=== PATIENT | female | born 1990 | race American Indian/Alaskan Native ===

== ENCOUNTER 2024-01-20 11:39 | Outpatient (REF) | payer MEDICAID, SELFPAY ==
[2024-01-20 13:20] LABS: MANUAL DIFF FLAG NO
[2024-01-20 13:38] LABS: Basophils Percent Auto 0.4 % (0-2); Eosinophils Absolute Auto 0.1 X10*3/uL (0.0-0.4); Eosinophils Percent Auto 1.1 % (0-4); Hematocrit 36.3 % (37.0-47.0); Hemoglobin 11.4 g/dl (12.0-16.0); Imm Gran Abs Auto 0.02 X10*3/uL (0.00-0.03); Imm Gran Pct Auto 0.2 % (0.0-0.4); Lymphocytes Absolute Auto 3.3 X10*3/uL (1.2-4.9); Lymphocytes Percent Auto 31.1 % (20-40); Mean Corpuscular HGB Conc 31.4 g/dl (31.0-35.0); Mean Corpuscular Hemoglobin 24.5 pg (27.0-33.0); Mean Corpuscular Volume 77.9 fL (80.0-98.0); Mean Platelet Volume 10.3 fL (9.4-12.3); Monocytes Absolute Auto 0.5 X10*3/uL (0.1-1.2); Monocytes Percent Auto 4.7 % (2-11); Neutrophils Absolute Auto 6.6 x10*3/uL (2.0-8.3); Neutrophils Percent Auto 62.5 % (45-73); Platelet Count 347 X10*3/uL (160-400); Red Blood Count 4.66 X10*6/uL (4.20-5.50); Red Cell Distribution Width 15.4 % (11.0-16.0); White Blood Count 10.5 X10*3/uL (4.8-10.8)
[2024-01-20 14:04] LABS: Estimated Average Glucose 114 mg/dL; Hemoglobin A1C 115.0058 umol/L; Hemoglobin A1c % 5.6 % (<6.0); Total Hemoglobin (HGBA1C) 3023.4869 umol/L
[2024-01-20 17:02] LABS: Alanine Aminotransferase 20 U/L (0-31); Albumin Level 4.2 g/dL (3.5-5.0); Alkaline Phosphatase 49 U/L (39-117); Anion Gap 11 (12-20); Aspartate Amino Transferase 28 U/L (5-31); Bilirubin Total 0.7 mg/dL (0.0-1.0); Blood Urea Nitrogen 14 mg/dL (9-16); Carbon Dioxide 24 mmol/L (22-29); Chloride 107 mmol/L (96-108); Cholesterol 189 mg/dL (<200); Estimated Glomerular Filt Rate > 60; Glucose Random 72 mg/dL (60-115); HDL Cholesterol 54 mg/dL (>40); LDL Cholesterol Calculated 116 mg/dL (<100); Potassium 3.8 mmol/L (3.3-5.1); Sodium 138 mmol/L (135-145); Total Protein 7.5 g/dL (6.5-8.0); Triglycerides 97 mg/dL (<150)
[2024-01-20 17:19] LABS: TSH reflex Free T4 0.92 uIU/mL (0.32-4.0); Vitamin D 25-OH Total 60.8 ng/mL (>30)
[2024-01-21 04:07] LABS: HIV AB/AG Nonreactive (Nonreactive); HIV Num 1 0.05 S/CO (0.00-0.99); ~Hepatitis C Antibody Nonreactive (Nonreactive)
== END 2024-01-20 11:40 | disposition home or self-care (01) ==
LOC: HO.HHCL 11:39
PROVIDERS: Visit Provider Internal Medicine
DX: Z00.00 Encounter for general adult medical examination without abnormal findings (principal)
CPT/HCPCS: 36415; 80053; 80061; 82306; 83036; 84443; 85025; 86803; 87389

== ENCOUNTER 2024-03-24 16:16 | Outpatient (REF) | payer MEDICAID, SELFPAY ==
[2024-03-24 18:21] LABS: Bacterial Vaginosis PCR NEGATIVE (Negative); Candida Group PCR NOT DETECTED (Not Detect); Candida glab krusei PCR NOT DETECTED (Not Detect); Trichomonas vaginalis PCR NOT DETECTED (Not Detect)
[2024-03-27 10:16] LABS: HPV 16,18/45 See PAP report
== END 2024-03-24 16:17 | disposition home or self-care (01) ==
LOC: HO.HHCLNP 16:16
PROVIDERS: Visit Provider Internal Medicine
DX: Z12.4 Encounter for screening for malignant neoplasm of cervix (principal); Z11.51 Encounter for screening for human papillomavirus (HPV)
CPT/HCPCS: 81515; 87626; 88175

== ENCOUNTER 2024-06-23 15:16 | Outpatient (REF) | payer MEDICAID, SELFPAY ==
--- OUTSIDE RECORDS SUMMARY | 2024-06-23 15:19 | XMS_ITS | Clinical Summary ---
Author Organization [employer] Address [address] [place] [address] 7[address] [place] [address] Care Team Providers Care Palaeontologist Name Role Phone Debbie Carmona MD Primary Care Provide r Allergies No known active allergies Medications * This document contains information received from the source organization and may not represent a complete record from that organization. levonorgestrel-e thinyl estradiol (Nordette) 0.15-30 MG-MCG tabletIndication s:Family planning TAKE 1 TABLET BY MOUTH EVERY MORNING 84 tablet 12/09/2023 Active amitriptyline (Elavil) 25 MG tabletIndication s:Migraine without aura and without status migrainosus, not intractable Take 1 tablet (25 mg) by mouth at bedtime. 30 tablet 1 05/15/2024 05/16/19 26 Active Active Problems Problem Noted Date Diagnosed Date Vasovagal syncope 06/23/2024 Assessment & Plan (06/23/2024 3:17 PM EDT): Hx suggestive of vasovagal syncope. Will refer to cardiology for possible holter/tilt test Encouraged hydration and salt in diet Consider compression stocking Follow up in 6 weeks Avulsion of tooth 06/23/2024 Encounter for screening for cervical cancer 03/15 Depression with anxiety 01/20/2024 Assessment & Plan (05/15/2024 10:21 AM EST): Counseling done Patient referred to [facility] Assessment & Plan (01/20/2024 1:12 PM EST): Counseling done Health care maintenance 01/20/2024 Migraine without aura and wi thout status migrainosus, not intractable 01/20/2024 Assessment & Plan (05/15/2024 10:22 AM EST): I advise to avoid migraine triggers like red wine, chocolate, cheese, strong perfumes I will go up on amitryptiline to 25mg at bed time RTC 4 weeks televisit Assessment & Plan (03/24/2024 11:14 AM EST): I advise to avoid migraine triggers like red wine, chocolate, cheese, strong perfumes I will start her on preventive medication amitriptyline 10mg at bed time C/w fioricept PRN RTC 4 weeks televisit Assessment & Plan (01/20/2024 1:13 PM EST): I advise to avoid migraine triggers like red wine, chocolate, cheese, strong perfumes I discontinue sumatriptan and started her on Fioricet PRN Encounters * This document contains information received from the source organization and may not represent a complete record from that organization. Date Type Department Care Team Description 06/23/2024 2:40 PM EDT Office Visit [facility] [address] [place] [address] Fouzia Frank NP Vasovagal syncope (Primary Dx); Tooth avulsion, sequela 06/23/2024 Telephone [facility] [address] [place] [phone] Debbie Carmona MD Nurse Triage 05/15/2024 10:00 AM EST Telemedicine [facility] [address], [place] [phone] Debbie Carmona MD Depression with anxiety (Primary Dx); Migraine without aura and without status migrainosus, not intractable 05/15/2024 Travel 05/10/2024 2:45 PM EST Office Visit [facility] [address] [place], [place] [phone] Jeanette Cardozo, IGOR Migraine without aura and without status migrainosus, not intractable (Primary Dx); Hypermetropia, bilateral 05/10/2024 Travel 05/08/2024 Travel 04/04/2024 Telephone [facility] [address] [place] [address] [phone] Debbie Carmona MD Results from Last 3 Months Immunizations Name Administration Dates Next Due Influenza, seasonal, injectable, preservative fr ee 01/20/2024 Pfizer Covid-19 Vaccine 12+ 01/20/2024 Family History Medical History Relation Name Comments Diabetes Mother Relation Name Status Comments Mother Social History Tobacco Use Types Packs/Day Years Used Date Smoking Tobacco: Never Passive Smoke Exposure: Never Smokeless Tobacco: Never Tobacco Cessation:Counseling Given: Not Answered Alcohol Use Standard Drinks/Week Comments Never 0 (1 standard drink = 0.6 oz pur e alcohol) Depression Answer Date Recorded Patient Health Questionnaire-9 Score 10 06/01/2024 Patient Health Questionnaire-9 Score 10 06/01/2024 Last PHQ-9: Questionnaire Data Not on file 0 06/01/2024 Housing Stability Answer Date Recorded What is your housing situation today? I have carolademetrice carter 01/11/[address] you li ve. Do you have problems with any of the following? None of the above 01/11/2024 Food Insecurity Answer Date Recorded Within the past 12 months, y ou worried that your food would run out before you got money to buy more: Never True 01/11/2024 Within the past 12 months,th e food you bought just didn't last and you didn't have enough money to get more: Never True Transportation Answer Date Recorded In the past 12 months, has l ack of transportation kept you from medical appts, meetings, work or from getting things needed for daily living? No 01/11/2024 Utilities Answer Date Recorded In the past 12 months, has t he electric, gas, oil or water company threatened to shut off services in your home? No 01/11/2024 Depression Answer Date Recorded Patient Health Questionnaire-2 Score 4 06/01/2024 Internet Access Answer Date Recorded Internet Access Q1 Yes 01/11/2024 Internet Access Q2 Not on file 01/11/2024 Comments No Sex and Gender Information Value Date Recorded Sex Assigned at Female 03/02/2023 2:19 PM EST Legal Sex Female 2:29 PM EST Gender Identity Female 03/02/2023 2:19 PM EST Sexual Orientation Straight 03/02/2023 2: 19 PM EST Last Filed Vital Signs Vital Sign Reading Time Taken Comments Blood Pressure 116/66 06/23/2024 2:36 PM EDT Pulse 79 06/23/2024 2:36 PM EDT Temperature 36.7 ??C (98 ??F) 06/23/2024 2:36 PM EDT Respiratory Rate 18 06/23/2024 2:36 PM EDT Oxygen Saturation 97% 06/23/2024 2:36 PM EDT Inhaled Oxygen Concentration - - Weight 62.6 kg (138 lb) 06/23/2024 2:36 PM EDT Height 167.6 cm (5' 6 ) 06/23/2024 2:36 PM EDT Body Mass Index 22.27 06/23/2024 2:36 PM EDT Plan of Treatment Upcoming Encounters Date Type Department Care Team (Late st Contact Info) Description 07/14/2024 11:00 AM EDT Telemedicine [facility] [address] [place] [phone] Debbie Carmona MD [address] [place] [address] 09/01/2024 4:00 PM EDT Office Visit [facility] [address] [place] [address] [phone] Fouzia Frank NP [address] [place] [address] Health Maintenance Due Date Last Done Comments Family Planning (PISQ) 2004 DTaP/Tdap/Td Vaccines (1 - Tdap) 2008 Hepatitis B Vaccines (1 of 3 - 19+ 3-dose series) 2008 HPV/Cotest 2019 Depression Monitoring 12/02/2024 06/01/2024 , 06/01/2024 SDOH Screening 01/10/2025 01/11/2024 Alcohol/Substance Use Screening 01/19/2025 01/20/2024 Depression Screening 06/01/2025 06/01/2024, 06/01/2024 Tobacco Screening 06/23/2025 06/23/2024 Cervical Cancer Screening 03/24/2029 Pap Smear 03/24/2029 03/24/2024 Zoster Vaccines (1 of 2) 2039 RSV Patients and Patients Aged 60 years or older (1 - 1-dose 75+ series) 2064 COVID-19 Vaccine Completed 01/20/2024 HIV Screening Completed 01/20/2024 Hepatitis C Screening Completed 01/20/2024 Influenza Vaccine Completed 01/20/2024 HIB Vaccines Aged Out No longer eligi ble based on patient's age to complete this topic HPV Vaccines Aged Out No longer eligi ble based on patient's age to complete this topic Hepatitis A Vaccines Aged Out No long er eligible based on patient's age to complete this topic IPV Vaccines Aged Out No longer eligi ble based on patient's age to complete this topic Meningococcal Vaccine Aged Out No fiorella sravanthi eligible based on patient's age to complete this topic Pneumococcal Vaccine: Pediatrics (0 to 5 Years) and At-Risk Patients (6 to 49) Years) Aged Out No longer eligible b ased on patient's age to complete this topic RSV under 20 months Aged Out No longe r eligible based on patient's age to complete this topic Rotavirus Vaccines Aged Out No longer eligible based on patient's age to complete this topic Procedures Procedure Name Priority Date/Time Associated Diagnosis Comments PAP SMEAR Routine 03/24/2024 12:00 AM EST Encounter for screening for cervical cancer HEPATITIS C AB W/REFL TO HCV RNA, QN, PCR Routine 01/20/2024 11:50 AM EST Health care maintenance HIV 1/2 ANTIGEN/ANTIBODY, FOURTH GENERATION W/RFL Routine 01/20/2024 11:50 AM EST Health care maintenance from Last 3 Months or Most Recently Relevant to Health Maintenance Results * Pap Smear (03/24/2024 12:00 AM EST) Swab 03/24/2024 03/27/2024 9:2 0 AM EST Narrative [facility] - 03/31/2024 12:54 PM EST ----- ------- Name: Margot Hartman ? Age/Sex: 34/F ? : 1990 Unit#: [id number] ?? Attend Dr: Debbie Carmona MD ?Re03/24/24 ?Status: DEP REF ? Location: [facility] ? Disch: ? ----- ------- SPEC : [id number] ?RECD: 03/27/24 ? STATUS: ??SOUT ? REQ NUM: [id number] ? TARA: 03/24/24- ? SUBM DR: Debbie Carmona MD ? ENTERED: ??03/27/24 ?SP TYPE: Pap Smr ?OTHR : ? ORDERED: ??Pap Smear ? Interpretation ?? Satisfactory for evaluation. ?? Negative for intraepithelial lesion or malignancy. ?? No endocervical cells seen. ? HPV High Risk: ??Negative ? HPV Genotyping 16: ??Negative ?? HPV Genotyping 18: ??Negative ?Clinical Information LMP: 02/25/2024 Previous PAP test: Unknown date, normal as per patient ? Material Received ?? ThinPrep-Cervical ----- ------- Signed (signature on file) VIC [place] (ASCP) 03/31/24 1254 ? ----- ------- ? END OF REPORT ? us Debbie Campuzano MD LAB CYTOLOGY ORDERABL ES Final Result [facility] [address] [place] [phone] * Hepatitis C Antibody with Reflex to HCV, RNA, Quantitative, Real-Time PCR (01/20/2024 11:50 AM EST) Hepatitis C Antibody Nonreactive Nonreactive [facility] Comment:Antibodies to HCV no t detected; does not exclude early acuteHCV infection. Blood Venous blood specimen / Unknown 01/20/2024 11:50 AM EST 01/20/2024 1:14 PM EST us Debbie Campuzano MD LAB BLOOD ORDERABLES Final Result Performing Organization Address [facility] de Phone Number [facility] [address] [place] [phone] * HIV-1/2 Antigen and Antibodies, Fourth Generation, with Reflexes (01/20/2024 11:50 AM EST) HIV AB/AG Nonreactive Nonreactive [facility] Comment:HIV-1 p24 Ag and/or HIV-1/HIV-2 Ab not detected.A test result that is nonreactive does not exclude thepossibility of exposure to or infection with HIV-1 and/orHIV-2. Nonreactive results in this assay for individualswith prior exposure to HIV-1 and/or HIV-2 may be due toantigen and antibody levels that are below the limit ofdetection of this assay.The [employer] HIV Ag/Ab Combo assay result andsupplemental assay results should be interpreted inconjunction with the patient's clinical presentation,history and other laboratory results. If the results areinconsistent with clinical evidence, additional testing issuggested to confirm the result. Blood Venous blood specimen / Unknown 01/20/2024 11:50 AM EST 01/20/2024 1:14 PM EST us Debbie Campuzano MD LAB BLOOD ORDERABLES Final Result Performing Organization Address [facility] de Phone Number [facility] [address] [place] [phone] from Last 3 Months or Most Recently Relevant to Health Maintenance Insurance [facility] [employer] F[employer] Care Teams Palaeontologist Relationship Specialty Start Date End Date Debbie Carmona MD [address] [place] [phone] PCP - General Internal Medicine 01/20/24
--- OUTSIDE RECORDS SUMMARY | 2024-06-23 15:19 | XMS_ITS | Encounter Summary ---
Author Organization [employer] Address [address] [place] [address] [address] [place] [address] Care Team Providers Care Inside Sales Professional Name Role Phone Debbie Carmona MD Primary Care Provide r Reason for Referral * Consultation (Routine) - Authorized Specialty Diagnoses / Procedures Referred By Contac t Referred To Contact Dental Pot Liner / Dentistry Diagnoses Vasovagal syncope Tooth avulsion, sequela Fouzia Frank NP [address] [place] [address] Phone: tel: fax: Referral ID Status Reason Start Date Expiration Date Visits Requested Visits Authorized [id number] Authorized Consult and Treat 06/23/2024 06/23/2025 1 1 * Consultation (Routine) - Pending Review Specialty Diagnoses / Procedures Referred By Conthudson t Referred To Contact Cardiology Diagnoses Vasovagal syncope Fouzia Frank NP [address] [place] [address] Phone: tel: fax: Referral ID Status Reason Start Date Expiration Date Visits Requested Visits Authorized [id number] Pending Review Specialty Services Required 06/23/2024 06/23/2025 1 1 Encounter Details Date Type Department Care Team (Late st Contact Info) Description 06/23/2024 2:40 PM EDT Office Visit [facility] [address] [place] [address] Fouzia Frank, ASA [address] [place] [address] Vasovagal syncope (Primary Dx); Tooth avulsion, sequela Social History Tobacco Use Types Packs/Day Years [...] is your housing situation today? I have carola carter 01/11/[address] you [...] Orientation Straight 03/02/2023 2: 19 PM EST documented as of this encounter Last Filed Vital Signs Vital Sign Reading [...] Mass Index 22.27 06/23/2024 2:36 PM EDT documented in this encounter Progress Notes * Fouzia Frank, CLINICAL CARE COORDINATOR - 06/23/2024 2:40 PM EDT Subjective: Margot Hartman is a 34 y.o. female who presents to the office for a sick visit. HPI Woke up , when stood up felt dizzy, lightheaded Sat down to urinate, and felt chills, very strong and then awoke on the floor, with pants low, no further urine Has been happening life long, always preceeded by lightheadedness, micturation or defecation and then faints Last time 6 months ago. Same thing occurred. Always after urinating or defecation but then it occurs. Has pain in the face where she fell and had a nose bleed Feels nausea and like going to vomit, has urinated unconscious before, no known hx of seizure This started at age 11 Hx of anemia (mild) Patient Active Problem List Diagnosis Depression with anxiety Health care maintenance Migraine without aura and without status migrainosus, not intractable Encounter for screening for cervical cancer Vasovagal syncope Avulsion of tooth Review of Systems Constitutional: Negative for activity change and appetite change. Respiratory: Negative for apnea and chest tightness. Cardiovascular: Negative for chest pain, palpitations and leg swelling. Genitourinary: Negative for difficulty urinating. Neurological: Positive for syncope and headaches. No Known Allergies Objective: Visit Vitals BP 116/66 (BP Location: Left arm, Patient Position: Sitting, BP Cuff Size: Adult) Pulse 79 Temp 98 ??F (36.7 ??C) (Temporal) Resp 18 Ht 5' 6 (1.676 m) Wt 138 lb (62.6 kg) LMP 05/23/2024 (Approximate) SpO2 97% BMI 22.27 kg/m?? OB Status Having periods Smoking Status Never BSA 1.71 m?? Physical Exam Vitals reviewed. HENT: Head: Normocephalic and atraumatic. Nose: Nose normal. Eyes: Conjunctiva/sclera: Conjunctivae normal. Cardiovascular: Rate and Rhythm: Normal rate and regular rhythm. Heart sounds: Normal heart sounds. Pulmonary: Effort: Pulmonary effort is normal. Breath sounds: Normal breath sounds. Musculoskeletal: Cervical back: Normal range of motion and neck supple. Neurological: General: No focal deficit present. Mental Status: She is alert. Assessment/Plan: Problem List Items Addressed This Visit Vasovagal syncope - Primary Current Assessment & Plan Hx suggestive of vasovagal syncope. Will refer to cardiology for possible holter/tilt test Encouraged hydration and salt in diet Consider compression stocking Follow up in 6 weeks Relevant Orders Referral to Cardiology CBC auto differential Comprehensive Metabolic Panel TSH W/Reflex to FT4 Referral to [facility] Dental Adult Avulsion of tooth Relevant Orders Referral to [facility] Dental Adult Current Outpatient Medications Medication Sig Dispense Refill amitriptyline (Elavil) 25 MG tablet Take 1 tablet (25 mg) by mouth at bedtime. 30 tablet 1 levonorgestrel-ethinyl estradiol (Nordette) 0.15-30 MG-MCG tablet TAKE 1 TABLET BY MOUTH EVERY MORNING 84 tablet 0 No current facility-administered medications for this visit. Visit Conducted in: Botswanan Translation by: Provided by [facility] staff member MARIELY park , documented in this encounter Miscellaneous Notes * Assessment & Plan Note - Fouzia Frank NP - 06/23/2024 3:16 PM EDTAssociated Problem(s): Vasovagal syncope Hx suggestive of vasovagal syncope. Will refer to cardiology for possible holter/tilt test Encouraged hydration and salt in diet Consider compression stocking Follow up in 6 weeks documented in this encounter Plan of Treatment Upcoming Encounters Date Type Department Care Team (Late st Contact Info) Description 07/14/2024 11:00 AM EDT Telemedicine [facility] [address] [place] [address] [phone] Debbie Carmona MD [address] [place], [place] [phone] 09/01/2024 4:00 PM EDT Office Visit [facility] [address] [place] [address] [phone] Fouzia Frank NP [address] [place], [place] [phone] Scheduled Orders Name Type Priority Associated Diagnoses Orde r Schedule CBC auto differential Lab Routine Vasovagal syncope Expected: 06/23/2024 (Approximate), Expires: 06/23/2025 Comprehensive Metabolic Panel Lab Routine Vasovagal syncope Expected: 06/23/2024 (Approximate), Expires: 06/23/2025 TSH W/Reflex to FT4 Lab Routine Vasovagal syncope Expected: 06/23/2024 (Approximate), Expires: 06/23/2025 Scheduled Referrals Name Type Priority Associated Diagnoses Order Schedule Referral to Cardiology Outpatient Referral Routine Vasovagal syncope Expected: 06/23/2024 (Approximate), Expires: 06/23/[address] [facility] Dental Adult Outpatient Referral Routine Vasovagal syncope Tooth avulsion, sequela Expected: 06/23/2024 (Approximate), Expires: 06/23/2025 documented as of this encounter Visit Diagnoses Diagnosis Vasovagal syncope- Primary Syncope and collapse Tooth avulsion, sequela documented in this encounter Additional Health Concerns Assessment Noted Time PHQ-9 Depression Total Score: 10 025 9:58 AM EDT documented as of this encounter Care Teams Inside Sales Professional Relationship Specialty Start Date End Date Debbie Carmona MD [address] [place] [address] [phone] PCP - General Internal Medicine 01/20/24 documented as of this encounter
--- OUTSIDE RECORDS SUMMARY | 2024-06-23 15:19 | XMS_ITS | Encounter Summary ---
Author Organization [employer] Address [address] [place] [address] [address] [place] [address] Care Team Providers Care Corporate Executive Name Role Phone Debbie Carmona MD Primary Care Provide r Reason for Visit * Reason Onset Date Comments Nurse Triage 06/23/2024 Encounter Details Date Type Department Care Team ([facility] st Contact Info) Description 06/23/2024 Telephone [facility] [address] [place] [phone] Debbie Carmona MD [address] [place] [address] Nurse Triage Social History Tobacco Use Types Packs/Day Years Used Date Smoking Tobacco: Never Passive Smoke Exposure: Never Smokeless Tobacco: Never Alcohol Use Standard Drinks/Week Comments Never 0 [...] PM EST documented as of this encounter Miscellaneous Notes * Telephone Encounter - Mary Gayle RN - 06/23/2024 9:57 AM EDT No vehicle return associate needed as this designer writer speaks Amharic. Call returned to Margot Hartman to triage below. Reports having a fainting episode this morning and hit face. Per pt had loss of consciousness x30 mins. Per pt was on toilet having BM and fainted hitting face on wall. Pt denies any open areas of skin. Front teeth are painful as well. Pt denies any dizziness now or vomiting. Pt advised of disp osition, agrees to seek [facility] ED now. Sent to team for [facility] ED status check PRN. Protocol Used: Head Injury (Adult) Protocol-Based Disposition: Go to ED/C Now (or to Office with PCP Approval) Positive Triage Questions: * Acute Neuro Symptom and now fine (Definition: Difficult to awaken OR confused thinking and talking OR slurred speech OR weakness of arms or legs OR unsteady walking.) * Knocked out (unconscious) < 1 minute and now fine * Severe headache * All higher-acuity triage questions were negative * Telephone Encounter - Neelam Yu - 06/23/2024 9:47 AM EDT Symptom: Dizziness, fainted ,fell this morning hit her face and informs believes was unconscious for about 30 min Outcome: Schedule an urgent appointment (within 4 hours) or talk to a nurse or provider soon Reason: Started within the past 3 days The caller accepted this outcome. documented in this encounter Plan of Treatment Upcoming Encounters Date Type Department Care Team (Late st Contact Info) Description 07/14/2024 11:00 AM EDT Telemedicine [facility] [address] [place] [phone] Debbie Carmona MD [address] [place] [address] 09/01/2024 4:00 PM EDT Office Visit [facility] [address] [place] [phone] Fouzia Frank NP [address] [place] [address] documented as of this encounter Visit Diagnoses Not on filedocumented in this encounter Additional Health Concerns Assessment Noted Time PHQ-9 Depression Total Score: 10 025 9:58 AM EDT documented as of this encounter Care Teams Corporate Executive Relationship Specialty Start Date End Date Debbie Carmona MD [address] [place] [address] [phone] PCP - General Internal Medicine 01/20/24 documented as of this encounter
[2024-06-23 16:02] LABS: MANUAL DIFF FLAG NO
[2024-06-23 16:14] LABS: Basophils Percent Auto 0.3 % (0-2); Eosinophils Absolute Auto 0.1 X10*3/uL (0.0-0.4); Eosinophils Percent Auto 0.5 % (0-4); Hematocrit 33.5 % (37.0-47.0); Hemoglobin 10.6 g/dl (12.0-16.0); Imm Gran Abs Auto 0.03 X10*3/uL (0.00-0.03); Imm Gran Pct Auto 0.3 % (0.0-0.4); Lymphocytes Absolute Auto 2.9 X10*3/uL (1.2-4.9); Lymphocytes Percent Auto 26.9 % (20-40); Mean Corpuscular HGB Conc 31.6 g/dl (31.0-35.0); Mean Platelet Volume 10.5 fL (9.4-12.3); Monocytes Absolute Auto 0.7 X10*3/uL (0.1-1.2); Monocytes Percent Auto 6.1 % (2-11); Neutrophils Absolute Auto 7.1 x10*3/uL (2.0-8.3); Neutrophils Percent Auto 65.9 % (45-73); Platelet Count 305 X10*3/uL (160-400); Red Blood Count 4.24 X10*6/uL (4.20-5.50); Red Cell Distribution Width 14.7 % (11.0-16.0); White Blood Count 10.8 X10*3/uL (4.8-10.8)
[2024-06-23 16:32] LABS: Alanine Aminotransferase 15 U/L (0-31); Albumin Level 4.5 g/dL (3.5-5.0); Alkaline Phosphatase 61 U/L (39-117); Anion Gap 8 (12-20); Aspartate Amino Transferase 25 U/L (5-31); Bilirubin Total 0.6 mg/dL (0.0-1.0); Blood Urea Nitrogen 14 mg/dL (9-16); Calcium 9.5 mg/dL (8.4-10.2); Carbon Dioxide 28 mmol/L (22-29); Chloride 106 mmol/L (96-108); Estimated Glomerular Filt Rate > 60; Glucose Random 88 mg/dL (60-115); Sodium 138 mmol/L (135-145); Total Protein 7.4 g/dL (6.5-8.0)
[2024-06-23 16:50] LABS: TSH reflex Free T4 0.49 uIU/mL (0.32-4.0)
== END 2024-06-23 15:17 | disposition home or self-care (01) ==
LOC: HO.HHCL 15:16
PROVIDERS: Visit Provider Nurse Practitioner Family
DX: R55 Syncope and collapse (principal)
CPT/HCPCS: 36415; 80053; 84443; 85025

== ENCOUNTER 2024-08-15 15:15 | Emergency (ER) | payer MEDICAID, SELFPAY ==
[2024-08-15] VITALS (9 sets, daily range): BP systolic 85–107; BP diastolic 50–74; PULSE 85–103; RESP 14–18; TEMP 36.6–36.7; O2SAT 99–100; BMI 24.1
--- NOTE | ~2024-08-15 | CT_ITS ---
CLINICAL HISTORY: possible seizure CT head without contrast Comparison: None Findings: No intra-axial mass, midline shift, hydrocephalus, or acute hemorrhage. No significant atrophy-like change or white matter disease. There is no sinus or mastoid fluid. The orbits are unremarkable. No skull fracture. IMPRESSION: 1. No acute intracranial findings. This document has been electronically signed by: Dajuan Doyle MD on 08/15/2024 19:17:42
--- NOTE | 2024-08-15 15:24 | ECG_ITS ---
Test Reason : syncope Blood Pressure : */* mmHG Vent. Rate : 93 BPM Atrial Rate : 93 BPM P-R Int : 118 ms QRS Dur : 72 ms QT Int : 344 ms P-R-T Axes : 64 55 70 degrees QTcB Int : 427 ms Normal sinus rhythm with sinus arrhythmia Normal ECG No previous ECGs available Referred By: Generic ED Physician Electronically Signed By: LAURA MERCADO
[2024-08-15 16:46] LABS: MANUAL DIFF FLAG NO
[2024-08-15 16:48] LABS: Basophils Percent Auto 0.3 % (0-2); Eosinophils Absolute Auto 0.1 X10*3/uL (0.0-0.4); Eosinophils Percent Auto 0.9 % (0-4); Hematocrit 34.7 % (37.0-47.0); Hemoglobin 10.8 g/dl (12.0-16.0); Imm Gran Abs Auto 0.06 X10*3/uL (0.00-0.03); Imm Gran Pct Auto 0.4 % (0.0-0.4); Lymphocytes Absolute Auto 2.5 X10*3/uL (1.2-4.9); Lymphocytes Percent Auto 16.9 % (20-40); Mean Corpuscular HGB Conc 31.1 g/dl (31.0-35.0); Mean Corpuscular Hemoglobin 24.5 pg (27.0-33.0); Mean Corpuscular Volume 78.9 fL (80.0-98.0); Mean Platelet Volume 10.4 fL (9.4-12.3); Monocytes Percent Auto 6.5 % (2-11); Neutrophils Absolute Auto 11.2 x10*3/uL (2.0-8.3); Platelet Count 296 X10*3/uL (160-400); Red Cell Distribution Width 14.7 % (11.0-16.0); White Blood Count 14.9 X10*3/uL (4.8-10.8)
[2024-08-15 16:53] LABS: Appearance Urine Clear; Color Urine Yellow; Glucose Urine UA Negative (Negative); Leukocyte Esterase Urine Trace (Negative); Nitrite Urine Negative (Negative); PH 5.5 (5.0-9.0); UMIC TRIGGER UACC YES; Urine Blood Large (3+) (Negative); Urine Ketones Negative (Negative); Urine Protein Trace mg/dL (Neg-Trace)
[2024-08-15 16:55] LABS: UPreg QC Valid YES; Urine Pregnancy NEGATIVE (NEGATIVE)
[2024-08-15 16:56] LABS: Bacteria Urine 2+ (None Seen); Hyaline Casts Urine 0-2 /LPF (0-2); RBC Urine >20 /HPF (0-2); UACC Culture Trigger YES
--- NOTE | 2024-08-15 17:00 | ED_ITS ---
HPI - General Adult General Chief complaint: Syncope Stated complaint: FALL WITH HEADSTRIKE Time Seen by Provider: 08/15/24 17:00 History of Present Illness ED Provider: Aryan PICKETT narrative: The patient is a 34-year-old female who was brought to the hospital by ambulance after having an episode of collapse while crossing a street. She says that she passed out. She says that 1st she felt dizzy then passed out. She bruised her lip when she fell. She believes she was unconscious. Bystanders called and ambulance and she was brought to the hospital. The patient says that she has been having similar problems since the age of 11. She says that these episodes of collapse or associated with her menses. She says that she usually has an episode of dizziness, syncope, and collapse 2 or 3 times a year associated with her menses. She has passed out in her lifetime more than 10 times. Her last episode before today was 2 or 3 months ago. At that time she passed out and chipped her front teeth. She says that she was also incontinent of urine today and has sometimes been incontinent of urine in the past. She says that he has never been evaluated for possible seizures. She is on no medications. She is not on control pills. She says that her episodes of dizziness and passing out associated with her menses was worse before she had her son 16 years ago. She says that her episodes are less frequent since she gave to her son but they have persisted nevertheless. She estimates that she has passed out more than 10 times in her lifetime. At the moment she is complaining of pain in her lower lip. She also has some pain in the left base of her neck. She has a headache. No numbness, tingling, weakness, burning in her extremities. She says that she has never had more than 1 such episode during any particular menstrual cycle. She says that on this occasion she just finished her menses. She says that she usually has one of these episodes just before or just after her menses. Related Data Allergies Allergy/AdvReac Type Severity Reaction Status Date / Time No Known Allergies Allergy Verified 08/15/24 16:02 Review of Systems 2 Review of Systems: Yes all other systems are reviewed and are negative Physical Exam ED Vital Signs: Vital Signs - 24 hr 08/15/24 15:59 08/15/24 16:40 08/15/24 16:40 Temperature 98 F Pulse Rate 96 98 102 H Respiratory Rate 14 Blood Pressure 89/58 L 101/63 96/68 Pulse Oximetry 100 Oxygen Delivery Method Room Air 08/15/24 16:41 08/15/24 17:20 08/15/24 17:20 Temperature Pulse Rate 102 H 103 H Respiratory Rate 18 Blood Pressure 105/66 107/71 Pulse Oximetry 100 100 Oxygen Delivery Method Room Air Room Air 08/15/24 18:10 08/15/24 18:18 08/15/24 19:30 Temperature 98.1 F Pulse Rate 87 85 Respiratory Rate 18 18 Blood Pressure 85/50 L 92/50 L 93/66 Pulse Oximetry 100 100 Oxygen Delivery Method Room Air Room Air 08/15/24 20:17 Temperature 98.1 F Pulse Rate 85 Respiratory Rate 18 Blood Pressure 93/66 Pulse Oximetry 100 Oxygen Delivery Method Room Air BMI result Body Mass Index 24.1 Const Other: The patient is a slim, healthy looking 34-year-old who was awake and alert. She does not seem in acute distress. She has a mild swelling to the lower lip. Orientation/consciousness: patient oriented x3 HENMT Other: There is some mild swelling to the lower lip. She has some slight cracking of the enamel of the lower portions of the 2 central upper incisors. She says these cracks are from a previous fall 2-3 months ago. No raccoon eyes. No hammer sign. The posterior pharynx is normal. Mucous membranes moist. Eyes Conjunctivae: conjunctivae normal Pupils: Equal, round and reactive pupils present EOM: EOMs intact bilaterally Neck Other: There is some tenderness to the left paraspinous muscles at the base of the neck. She is moving her neck easily without apparent discomfort. I think her C-spine is clinically clear. Neck: Yes no meningeal signs Resp Effort & Inspection: normal respiratory effort Auscultation: clear to auscultation bilaterally Cardio Rate: regular rate Rhythm: regular rhythm Heart sounds: S1 normal heart sound present and S2 normal heart sound present GI Other: The abdomen is soft and nontender Skin General skin exam: no rashes or lesions noted Neuro General: patient oriented x3, tone normal, moves all extremities, no meningeal signs, no focal motor deficits and CN's II-XI intact bilaterally Cranial nerves: Yes Equal, round and reactive pupils present Extrem Other: No peripheral edema, no calf swelling or tenderness Medications Administered Discontinued Medications Generic Name Dose Route Start Last Admin Trade Name Augustine PRN Reason Stop Dose Admin Sodium Chloride 1,000 mls @ 999 mls/hr 08/15/24 18:30 08/15/24 20:19 Ns IV 08/15/24 19:30 Infused .Q1H1M MIKE Infusion Medical Decision Making Medical Decision Making [facility] Narrative: The patient is a 34-year-old female who was brought to the Emergency room by ambulance after having some kind of a syncopal type episode while crossing the street on her way to work. The patient describes feeling dizzy and then passing out. She describes injuring her face, primarily her lower lip. She feels that her lower lip is bruised. She also describes being incontinent of urine. This seems potentially suggestive of a seizure disorder however the patient also describes having multiple similar episodes since the age of 11. the patient says that since the age of 11 she has had similar episodes associated with her menses. She says that she will often get episodes of dizziness and collapse that occur either at the beginning of her menses, or just after her menses ended. She says that she has episodes of passing out at least 2 or 3 times a year and has done so for many years. She says that she has never had any kind of evaluation for a seizure any other workup of these episodes. On exam she seems to have some bruising of her lower lip. Additionally she has some minor chipping to the lower front upper teeth ( teeth 8 and 9). she says that this chipping occurred during a similar episode of collapse 2 or 3 months ago. She says that at that point she went to her PCP's office but was not referred for any other evaluation. In the emergency room today the patient has a negative workup including a negative head CT. EKGs unremarkable. She seems to run a low blood pressure but I suspect this is her baseline blood pressure. She was kept in the emergency room for several hours and observed. She was given a L of IV fluids. Ultimately given her negative workup I felt she was appropriate for discharge. She will be referred for outpatient neurology and cardiology follow up to discuss these episodes of syncope and collapse. Since seizures are still in the differential she is advised that she must not drive. Lab Data 08/15/24 16:20 08/15/24 16:20 Labs: Lab Results 08/15/24 08/15/24 Range/Units 16:20 16:38 WBC 14.9 H (4.8-10.8) X10*3/uL RBC 4.40 (4.20-5.50) X10*6/uL Hgb 10.8 L (12.0-16.0) g/dl Hct 34.7 L (37.0-47.0) % MCV 78.9 L (80.0-98.0) fL MCH 24.5 L (27.0-33.0) pg MCHC 31.1 (31.0-35.0) g/dl RDW 14.7 (11.0-16.0) % Plt Count 296 (160-400) X10*3/uL MPV 10.4 (9.4-12.3) fL Immature Gran % (Auto) 0.4 (0.0-0.4) % Neut % (Auto) 75.0 H (45-73) % Lymph % (Auto) 16.9 L (20-40) % [place] % (Auto) 6.5 (2-11) % Eos % (Auto) 0.9 (0-4) % Baso % (Auto) 0.3 (0-2) % Lymph # (Auto) 2.5 (1.2-4.9) X10*3/uL [place] # (Auto) 1.0 (0.1-1.2) X10*3/uL Eos # (Auto) 0.1 (0.0-0.4) X10*3/uL Baso # (Auto) 0.0 (0.0-0.2) X10*3/uL Abs Immat Gran (auto) 0.06 H (0.00-0.03) X10*3/uL Absolute Neuts (auto) 11.2 H (2.0-8.3) x10*3/uL Absolute Nucleated RBC 0.000 (0.0-0.012) X10*3/uL Nucleated RBC % (auto) 0.0 (0.0-0.2) /100WBC Sodium 138 (135-145) mmol/L Potassium 3.7 (3.3-5.1) mmol/L Chloride 108 (96-108) mmol/L Carbon Dioxide 23 (22-29) mmol/L Anion Gap 11 L (12-20) BUN 15 (9-16) mg/dL Creatinine 0.77 (0.5-1.4) mg/dL Estim Creat Clear Calc 88.0 Estimated GFR > 60 Random Glucose 116 H (60-115) mg/dL Calcium 9.1 (8.4-10.2) mg/dL Total Bilirubin 0.4 (0.0-1.0) mg/dL AST 23 (5-31) U/L ALT 18 (0-31) U/L Alkaline Phosphatase 66 (39-117) U/L Total Protein 7.1 (6.5-8.0) g/dL Albumin 4.2 (3.5-5.0) g/dL Urine Color Yellow Urine Appearance Clear Urine pH 5.5 (5.0-9.0) Ur Specific Willis 1.020 (1.005-1.025) Urine Protein Trace (Neg-Trace) mg/dL Urine Glucose (UA) Negative (Negative) mg/dL Urine Ketones Negative (Negative) mg/dL Urine Blood Large (3+) H (Negative) Urine Nitrite Negative (Negative) Ur Leukocyte Esterase Trace H (Negative) Urine RBC >20 H (0-2) /HPF Urine WBC 6-10 H (0-5) /HPF Ur Squamous Epith Cells 6-10 (0-2) /HPF Urine Bacteria 2+ (None Seen) Hyaline Casts 0-2 (0-2) /LPF Urine Test NEGATIVE (NEGATIVE) Discharge Plan Discharge Clinical Impression: Syncope and collapse, Contusion of lip Patient Disposition: Home, Self-Care Additional Instructions: I think that you should try to have additional evaluation to investigate why you keep having these episodes of collapse. You has been provided with the contact information for the cardiology office and the neurology office. Please contact these offices tomorrow to make follow up appointments. Since it is possible these episodes could represent unusual seizures I feel that I need to tell you that you should not drive a car until you has been cleared by Neurology. In the meantime make sure that you eat well and take plenty of fluids. Follow up with your regular doctor as well as the neurology office and the cardiology office. Return to the emergency room if significantly worse. Referrals: [facility] [Provider Group] ( recurrent syncope versus seizure) [facility] [Provider Group] ( recurrent syncope versus recurrent seizure) Debbie Carmona MD [Primary Care Provider] - ( syncope versus seizure) Stand Alone Forms: Work/School Release Interventions: ED Discharge Assessment Last Done: 08/15/24 20:17 Discharge Date/Time: 08/15/24 20:19 Print Language: Finnish
[2024-08-15 17:07] LABS: Alanine Aminotransferase 18 U/L (0-31); Albumin Level 4.2 g/dL (3.5-5.0); Alkaline Phosphatase 66 U/L (39-117); Anion Gap 11 (12-20); Aspartate Amino Transferase 23 U/L (5-31); Bilirubin Total 0.4 mg/dL (0.0-1.0); Blood Urea Nitrogen 15 mg/dL (9-16); Calcium 9.1 mg/dL (8.4-10.2); Carbon Dioxide 23 mmol/L (22-29); Chloride 108 mmol/L (96-108); Estimated Glomerular Filt Rate > 60; Glucose Random 116 mg/dL (60-115); Potassium 3.7 mmol/L (3.3-5.1); Sodium 138 mmol/L (135-145); Total Protein 7.1 g/dL (6.5-8.0)
--- OUTSIDE RECORDS SUMMARY | 2024-08-15 17:10 | XMS_ITS | Encounter Summary ---
Author Organization [employer] Address [address] [place] [address] Care Team Providers Care Court Attendant Name Role Phone Debbie Carmona MD Primary Care Provide r Encounter Details Date Type Department Care Team ([facility] st Contact Info) Description 07/12/2024 Orders Only [facility] [address] [place] [address] Radha Hobson Social History Tobacco Use Types Packs/Day Years [...] PM EST documented as of this encounter Functional Status * Over the last 2 weeks, how often have you been bothered by any of the following problems? Question Answer Date of Assessment Author Feeling nervous, anxious, or on edge 2 04/2024 11:01 AM EDT Dayana Bazan MA Not being able to stop or co ntrol worrying 2 07/14/2024 11:01 AM EDT Dayana Bazan M A Worrying too much about diff erent things 3 07/14/2024 11:01 AM EDT Dayana Bazan M A Trouble relaxing 3 07/14/2024 11:01 AM EDT Dayana Bazan MA Being so restless that it is hard to sit still 2 07/14/2024 11:01 AM EDT Dayana Bazan M A Becoming easily annoyed or irritable 2 04/2024 11:01 AM EDT Dayana Bazan MA Feeling afraid as if somethi ng awful might happen 0 07/14/2024 11:01 AM EDT Dayana Bazan M A ALVARO-7 Total Score 14 07/14/2024 11:01 AM EDT Dayana Bazan MA documented as of this encounter Plan of Treatment Upcoming Encounters Date Type Department Care Team (Late st Contact Info) Description 08/25/2024 2:30 PM EDT Office Visit [facility] ADULT DENTAL [address] [place] [address] Bernice Katz DDS [address] [place] [address] 09/01/2024 4:00 PM EDT Office Visit [facility] MEDICINE [address] [place] [address] Fouzia Frank, ASA [address] [place] [address] 09/08/2024 3:00 PM EDT Office Visit [facility] AD[facility] [address] [place] [address] Bright-Cherry, Bernice, DDS [address] [place], [place] [id number] documented as of this encounter Procedures Procedure Name Priority Date/Time Associated Diagnosis Comments URINALYSIS, COMPLETE, WITH REFLEX TO CULTURE Routine 08/15/2024 4:38 PM EDT HCG, QL, URINE Routine 08/15/2024 4:38 PM EDT HPV MRNA E6/E7 REFLEX TO HPV 16, 18/45 Routine 03/24/2024 12:00 AM EST documented in this encounter Results * (ABNORMAL) Urinalysis, Complete, with Reflex to Culture (08/15/2024 4:38 PM EDT) Color Urine Yellow [facility] Appearance Urine Clear [facility] PH 5.5 5.0 - 9.0 [facility] Glucose Urine UA Negative Negative mg/dL [facility] Urine Blood Large (3+)(A) Negative [facility] Specific [place] - Urine 1.020 1.005 - 1.025 [facility] Urine Protein Trace Neg-Trace mg/dL [facility] Urine Ketones Negative Negative mg/dL [facility] Nitrite Urine Negative Negative [facility] Leukocyte Esterase Urine Trace(A) Negative [facility] RBC Urine >20(A) 0 - 2 /HPF [facility] Urine WBC 6-10(A) 0 - 5 /HPF [facility] Urine Squamous Epithelial Cell 6-10 0 - 2 /HPF [facility] Urine Bacteria 2+ None Seen [facility] Hyaline Casts, Urine 0-2 0 - 2 /LPF [facility] 08/15/2024 4:38 PM EDT 08/15/2024 4:44 PM EDT Narrative [facility] - 08/15/2024 4:56 PM EDT [id number], Clean Catch us Generic External Data Provider LAB URINE ORDERAB LES Final Result Performing Organization Address [facility] Co de Phone Number [facility] [address] [place] [address] [phone] * HCG, Qualitative, Urine (08/15/2024 4:38 PM EDT) Urine NEGATIVE NEGATIVE [facility] Comment:This test was develo ped to detect early . Falsenegative results may occur after the 5th - 7th week ofpregnancy when using this test method. If clinicallyindicated, consider a serum hCG. 08/15/2024 4:38 PM EDT 08/15/2024 4:44 PM EDT us Generic External Data Provider LAB URINE ORDERAB LES Final Result Performing Organization Address [facility] Co de Phone Number [facility] [address] [place] [address] [phone] * HPV mRNA E6/E7 w/Reflex to HPV Genotypes 16, 18/45 (03/24/2024 12:00 AM EST) us Historical Provider LAB CYTOLOGY ORDERABLES F inal Result documented in this encounter Visit Diagnoses Not on filedocumented in this encounter Additional Health Concerns Assessment Noted Time PHQ-9 Depression Total Score: 10 025 9:58 AM EDT documented as of this encounter Care Teams Court Attendant Relationship Specialty Start Date End Date Debbie Carmona MD [address] [place] [phone] PCP - General Internal Medicine 01/20/24 documented as of this encounter
[2024-08-15] MEDS: 0.9 % Sodium Chloride 1,000 ML 999 ML IV (18:25)
== END 2024-08-15 20:19 | disposition home or self-care (01) ==
PROVIDERS: Emergency Provider Emergency Medicine; PCP Internal Medicine
DX: R55 Syncope and collapse (principal); S00.531A Contusion of lip, initial encounter; W18.39XA Other fall on same level, initial encounter; R42 Dizziness and giddiness; R51.9 Headache, unspecified; Z91.81 History of falling; Y93.89 Activity, other specified; Y92.414 Local residential or business street as the place of occurrence of the external cause; Y99.9 Unspecified external cause status
CPT/HCPCS: 36415; 70450; 80053; 81001; 81025; 85025; 87086; 93005; 96360; 96361; 99284; 99285

== ENCOUNTER → 2024-08-15 15:24 | Outpatient (BNV) | payer MEDICAID, SELFPAY | PROVIDERS: Emergency Provider Emergency Medicine; PCP Internal Medicine; Visit Provider Internal Medicine | DX: R55 Syncope and collapse (principal) | CPT/HCPCS: 93010 ==

== ENCOUNTER → 2024-08-15 17:27 | Outpatient (BNV) | payer MEDICAID, SELFPAY | PROVIDERS: Emergency Provider Emergency Medicine; PCP Internal Medicine; Visit Provider Radiology Vascular & Interventional Radiology | DX: R55 Syncope and collapse (principal) | CPT/HCPCS: 70450 ==

== ENCOUNTER 2024-09-01 13:27 | Outpatient (AMB) | payer OTHER, SELFPAY ==
--- NOTE | 2024-09-01 13:30 | MHC.OFFVIS ---
Vital Signs 09/01/24 13:33 Height 5 ft 4 in Weight 129 lb 3.054 oz BMI 22.2 BP 88/66 L Blood Pressure Location Lt brachial Position Sitting Pulse 88 Pulse Source Monitor Intake Visit Reasons: [facility] [place] fall head strike Intake Note: [facility] fall head strike Residential Appliance Repair Technician Required: Yes Residential Appliance Repair Technician Language: Telegraph Editor Name: [email or web address] Accompanied by: Self / Same As Patient Allergies No Known Allergies Allergy (Verified 08/15/24 16:02) Medication List - Last Reconciled 09/01/24 by Ángel Argueta NP ferrous sulfate 325 mg PO QAM HPI Comments Details: This is a 34-year-old female patient referred for Cardiology consultation for further evaluation of syncope. Patient with no known history of cardiomyopathy, ischemic disease, or coronary artery disease. Patient with no known family history either. Patient states that since the age of 11, patient gets these dizzy spells followed by syncopal episodes during the time when she is about to either start her menses or during her menses. Patient states that back in she is to have these episodes more often but has been coming infrequent [place] Patient notes that she has only had 4 episodes since she has [place] however these episodes are more intense. Patient states that she gets dizzy and even before she can lay down to avoid falls, she passes out quick. Patient states that about 3 months ago she had a similar episode where she passed out an chipped her tooth. Patient states that during these episodes she has always had bowel and bladder incontinence. Patient has never been evaluated for seizures and has neurology consultation end of this month. This time around, patient again was walking across the street where she got dizzy and passed out. Apparently the bystanders called the ambulance and was brought to the hospital, patient does not remember anything in between. Patient denies any use of tobacco or street drugs. Admits to occasional alcohol use. Patient denies any associated symptoms of exertional chest pain, shortness of breath, palpitations, orthopnea, PND, leg edema, presyncope, or syncope. Patient is only on iron supplementation for chronic anemia. [facility] Social History Alcohol intake: current Alcohol intake frequency: holidays/special occasions only Patient Tobacco Use Status: Never used Tobacco Review of Systems Const Denies chills, Denies fatigue, Denies fever(s), Denies frequent falls, Denies weakness, Denies weight gain and Denies weight loss ENT Denies dizziness Card Denies chest pain, Denies leg edema, Denies lightheadedness, Denies palpitations, Denies dyspnea, Denies dyspnea on exertion and Denies orthopnea Resp Denies cough, Denies dyspnea and Denies dyspnea on exertion GI Denies bloating and Denies change in bowel habits Musc Denies muscle weakness, Denies numbness and Denies tingling Neuro Denies dizziness, Denies frequent falls, Denies numbness, Denies tingling and Denies weakness Endo Denies fatigue and Denies palpitations Physical Exam Vital Signs: Last Vital Signs Pulse 88 09/01/24 13:33 BP 88/66 L 09/01/24 13:33 BMI result Body Mass Index 22.2 Const General: cooperative, healthy appearing, comfortable and no acute distress Orientation/consciousness: patient oriented x3 HEENT Head: Yes normal to inspection Neck Neck: Yes normal visual inspection, Yes trachea midline and Yes supple Chest Chest palpation & inspection: normal inspection of the chest Resp Effort & Inspection: normal respiratory effort Auscultation: clear to auscultation bilaterally, no crackles, no rales, no rhonchi and no wheezes Cardio Jugular venous distension: no JVD Palpation: normal PMI Rate: regular rate Rhythm: regular rhythm Heart sounds: S1 normal heart sound present, S2 normal heart sound present, no click, no gallops, no murmurs and no rubs Peripheral pulses: Peripheral pulses 2+ throughout GI Inspection: Yes normal to inspection Palpation (GI): Soft to palpation Auscultation: normal bowel sounds Skin General skin exam: no rashes or lesions noted Neuro General: patient oriented x3 Extrem General: Yes normal to inspection, No no pedal edema and No calf tenderness Psych Appearance: grossly normal Mental Status: mental status grossly normal Speech and movement: Normal speech and movement present Office Procedures EKG Details: EKG today showed normal sinus rhythm, rate 88 beats per minute, [place], [place]. [id number], Complete Assessment & Plan Assessment & Plan (1) Syncope and collapse: Code(s): R55 - Syncope and collapse Category: Medical Plan: Patient's symptoms sounding more neurological in nature however we will proceed with a cardiac workup including an echocardiogram to look for any LV systolic and diastolic dysfunction as well as any wall motion abnormalities. We will also get a Holter monitor to look for any potential arrhythmias causing her to have these syncopal episodes. Patient's blood pressure is low today and looking back patient's blood pressure tends to run low. Patient states that she only drinks one 10 oz water throughout the day. Emphasized on adequate hydration with at least 2.5-3 L daily. (2) Hospital discharge follow-up: Code(s): Z09 - Encounter for follow-up examination after completed treatment for conditions other than malignant neoplasm Plan: As above. Advised heart healthy diet, regular exercise, keeping a diary for episodes and to follow up with Neurology. Follow up after the completion of the echo and the stress test. In the interim, patient will call the office with any concerns or change in symptoms. This note was generated using voice recognition software. While every effort has been made to ensure accuracy and proper passenger car upholsterer apprentice, there may be occasional errors that could affect the content or meaning of the described symptoms. Orders: Orders ECG 3 day holter monitor Today R55 - Syncope and collapse AMB EKG-In Office Today R55 - Syncope and collapse CA echo transthoracic complete Today R55 - Syncope and collapse Coding Level of Care Code New Pt Level 4 (51148) Complex EM visit Add On G2211 Diagnoses Syncope and collapse R55 Hospital discharge follow-up Z09 CPT Codes EKG - CPT: 50644-[id number], Complete ([id number]) Time Spent (min) 31 Comment Time spent in reviewing the chart, test results, assessment, counseling and documentation.
--- OUTSIDE RECORDS SUMMARY | 2024-09-01 13:32 | XMS_ITS | Encounter Summary ---
Author Organization [employer] Address [address] [place] [address] 7 [place] [address] Care Team Providers Care Music Mixer Name Role Phone Debbie Carmona MD Primary Care Provide r Reason for Visit * Reason Onset Date Comments ER Follow-up 08/16/2024 Encounter Details Date Type Department Care Team ([facility] st Contact Info) Description 08/16/[address] [facility] MEDICINE [address] [place], [place] [phone] Debbie Carmona MD [address] [place] [address] ER Follow-up Social History Tobacco Use Types Packs/Day Years [...] encounter Miscellaneous Notes * Telephone Encounter - Jill Berrios RN - 08/16/2024 11:20 AM EDT Triage call [place] [id number] Pt didn't answer x2, left voice message to call [facility] triage line at [phone] * Telephone Encounter - Remi Conklin - 08/16/2024 11:11 AM EDT Tc from pt calling in regards to message prior to report she is till experiencing symptoms: Symptom: Mouth Pain - Not From Injury Outcome: Schedule an appointment to be seen within 24 hours Reason: Caller denied all higher acuity questions * Telephone Encounter - Stefany Cancino - 08/16/2024 10:02 AM EDT Patient calling to report ED visit on : Date: 08/15/24 Hospital: [facility] Seen for: dizziness Symptomatic No TC from pt stating at [facility] advised pt to call and schedule apt with provider after being seen yesterday. Contact pt at [phone] (amharic) documented in this encounter Plan of Treatment Upcoming Encounters Date Type Department Care Team (Late st Contact Info) Description 09/08/2024 3:00 PM EDT Office Visit [facility] ADULT DENTAL [address] [place] [address] Deangelo-Bernice Cherry, DDS [address] [place], [place] [phone] documented as of this encounter Visit Diagnoses Not on filedocumented in this encounter Additional Health Concerns Assessment Noted Time PHQ-9 Depression Total Score: 10 025 9:58 AM EDT documented as of this encounter Care Teams Music Mixer Relationship Specialty Start Date End Date Debbie Carmona MD [address] [place] [address] PCP - General Internal Medicine 01/20/24 documented as of this encounter
[2024-09-01 13:33] VITALS: BP 88/66; PULSE 88; BMI 22.2
== END 2024-09-01 14:06 | disposition home or self-care (01) ==
PROVIDERS: PCP Internal Medicine
DX: R55 Syncope and collapse (principal); Z09 Encounter for follow-up examination after completed treatment for conditions other than malignant neoplasm
CPT/HCPCS: 93010; 99204; G2211

== ENCOUNTER → 2024-09-01 13:27 | Outpatient (BNVA) | payer MEDICAID, SELFPAY | PROVIDERS: PCP Internal Medicine | DX: Z09 Encounter for follow-up examination after completed treatment for conditions other than malignant neoplasm (principal); R55 Syncope and collapse | CPT/HCPCS: 93005; 99202 ==

== ENCOUNTER 2024-09-11 10:43 | Outpatient (AMB) | payer MEDICAID, SELFPAY ==
[2024-09-11 10:48] VITALS: BP 94/78; PULSE 92; O2SAT 100; BMI 22.0
--- NOTE | 2024-09-11 10:48 | MHC.OFFVIS ---
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 The episodes are preceded by nausea, lightheadedness, sweating and passes out. she is unconscious for about 15 minutes.No headaches . and she denies any post event confusion.But when she regains consciousness she has intense urge to urinate or defecate. The last episode she had could not resist the urge and urinated.all episodes.Her first episode was at age 11 - during her periods. All her episodes are during periods.This year she had 4 episodes. Prior to that she had less frequent episodes. No tongue biting but had injury due to fall. she does not drive since her last episode she has h/o migraines and low blood pressure. Her migraines are more frequent in winter. The headaches ar eunitemporal L>R - strong pounding ledy. No nausea with light sensitvity.Tylenol helps. PFSH Surgical History (Updated 09/11/24 @ 10:49 by JOVITA Antoine) H/O section Family History (Updated 09/11/24 @ 10:50 by JOVITA Antoine) Mother Diabetes Social History Alcohol intake: current Alcohol intake frequency: holidays/special occasions only Patient Tobacco Use Status: Never used Tobacco Physical Exam Vital Signs: Last Vital Signs Pulse 92 09/11/24 10:48 BP 94/78 09/11/24 10:48 Pulse Ox 100 09/11/24 10:48 BMI result Body Mass Index 22.0 Const General: cooperative, healthy appearing, comfortable and no acute distress Nutritional Appearance: average body habitus Orientation/consciousness: patient oriented x3 Eyes Pupils: Equal, round and reactive pupils present Neuro General: patient oriented x3, gait normal, tone normal, moves all extremities and no focal motor deficits Cranial nerves: Yes Facial sensation intact/muscles of mastication intact, Yes Equal, round and reactive pupils present, Yes Bilaterally intact EOM present, Yes Nystagmus not present, Yes Normal facial strength present, Yes Midline tongue present and Yes Ability to bilaterally elevate shoulders present Cognition (Neuro): normal cognition Gait exam (Neuro): Normal gait present Motor exam (neuro): 5/5 motor strength present throughout and Normal motor muscle tone present throughout Deep tendon reflexes (DTR's): Right triceps reflex intensity grade: 1+, Left triceps reflex intensity grade: 1+, Rt Biceps (C5, C6): 1+, Left biceps reflex intensity grade: 1+, Right brachioradialis reflex intensity grade: 1+, Left brachioradialis reflex intensity grade: 1+, Right patellar reflex intensity grade: 1+ and Left patellar reflex intensity grade: 1+ Coordination: [id number]-[id number] test normal Assessment & Plan Assessment & Plan (1) Syncope and collapse: Comment: likely vasovagal , unlikley to be seizures Code(s): R55 - Syncope and collapse Category: Medical Plan I will evaluate her with EEG MRI BRain Start magnesium 400mg qhs for migraine prophylaxis Increase fluid intake during periods NO DRIVING Orders: Orders MR head/brain wo con Today R55 - Syncope and collapse EEG electroencephalogram Today R55 - Syncope and collapse Coding Level of Care Code New Pt Level 4 (28067) Complex EM visit Add On G2211 Diagnoses Syncope and collapse R55
--- OUTSIDE RECORDS SUMMARY | 2024-09-11 11:27 | XMS_ITS | Encounter Summary ---
Author Organization [employer] Address [address] [place] [address] 7 [place] [address] Care Team Providers Care Criminal Judge Name Role Phone Debbie Carmona MD Primary Care Provide r Reason for Visit * Reason Onset Date Comments ER Follow-up 08/16/2024 Encounter Details Date Type Department Care Team ([facility] st Contact Info) Description 08/16/2024 Telephone [facility] MEDICINE [address] [place], [place] [phone] Debbie Carmona MD [address] [place] [address] ER Follow-up Social History Tobacco Use Types [...] 11:20 AM EDT Triage call [place] [id number] Pt didn't answer x2, left voice message to call [facility] triage line at [phone] * Telephone Encounter - Remi Conklin - [...] ED visit on : Date: 08/15/24 Hospital: [facility] Seen for: dizziness Symptomatic No TC from pt stating at [facility] advised pt to call and schedule apt with provider after being seen yesterday. Contact pt at [phone] (lao) documented in this encounter Plan of Treatment Upcoming Encounters Date Type Department Care Team (Late st Contact Info) Description 09/13/2024 2:00 PM EDT Office Visit [facility] ADULT DENTAL [address] [place] [address] Lorena Márquez [address] [place] [address] documented as of this encounter Visit Diagnoses Not on filedocumented in this encounter Additional Health Concerns Assessment Noted Time PHQ-9 Depression Total Score: 10 025 9:58 AM EDT documented as of this encounter Care Teams Criminal Judge Relationship Specialty Start Date End Date Debbie Carmona MD [address] [place] [address] PCP - General Internal Medicine 01/20/24 documented as of this encounter
== END 2024-09-11 11:29 | disposition home or self-care (01) ==
LOC: HO.HSMS 10:43
PROVIDERS: PCP Internal Medicine; Visit Provider Psychiatry & Neurology Neurology
DX: R55 Syncope and collapse (principal)
CPT/HCPCS: 99204

== ENCOUNTER → 2024-09-11 10:43 | Outpatient (BNVA) | payer MEDICAID, SELFPAY | PROVIDERS: PCP Internal Medicine; Visit Provider Psychiatry & Neurology Neurology | DX: R55 Syncope and collapse (principal); R11.0 Nausea | CPT/HCPCS: 99202 ==

== ENCOUNTER 2024-09-26 10:00 | Outpatient (REF) | payer OTHER, SELFPAY ==
--- NOTE | ~2024-09-26 | MR_ITS ---
EXAMINATION: MR BRAIN WITHOUT CONTRAST CLINICAL INFORMATION: Syncope. Dizziness. Headache. COMPARISON: Correlated to CT dated August 15, 2024. TECHNIQUE: MRI of the brain was obtained using routine sequences without contrast. FINDINGS: No restricted diffusion. No acute intracranial hemorrhage, mass effect, midline shift, hydrocephalus or herniation. Munroe-white matter differentiation is normal. Posterior cranial fossa contents demonstrated no signal abnormality or mass effect. There is normal position of the cerebellar tonsils. Sellar/suprasellar region demonstrated no gross masses or signal abnormality. Flow-void signal within the main cerebral vessels is normal. There is a 5 mm hyperintense T2 restricted diffusion signal in the anterior superficial right parotid gland. There is hyperintense T2 restricted diffusion in the palatine tonsils. MR/MR head/brain wo con IMPRESSION: No acute or structural brain abnormality. Probable intraparenchymal lymph node, superficial right parotid gland. Small Victoria's tumor cannot be excluded. Probable inflammatory process in the palatine tonsils. Electronically signed by: Sunday Dorsey MD 09/26/2024 10:43 AM EDT
--- OUTSIDE RECORDS SUMMARY | 2024-09-26 10:58 | XMS_ITS | Encounter Summary ---
Author Organization [employer] Address [address] [facility] [address] [place] [address] Care Team Providers Care Economic Adviser Name Role Phone Debbie Carmona MD Primary Care Provide r Encounter Details Date Type Department Care Team ([facility] Contact Info) Description 09/26/2024 Orders Only [facility] External Provider, [facility] Social History Tobacco Use Types Packs/Day Years [...] PM EST documented as of this encounter Plan of Treatment Not on file documented as of this encounter Procedures Procedure Name Priority Date/Time Associated Diagnosis Comments MR BRAIN WO CONTRAST Routine 09/26/2024 10:07 AM EDT documented in this encounter Results * MR Brain w/o Contrast (09/26/2024 10:07 AM EDT) Anatomical Region Laterality Modality Brain Magnetic Resonan ce 09/26/2024 10:0 7 AM EDT Narrative 09/26/2024 10:45 AM EDT [place] [address] Magnetic Resonance Report Signed Patient: Margot Hartman MR#: [id number] : 1990 Acct:[id number] Age/Sex: 34 / F ADM Date: 09/26/24 Loc: HO.MRI Attending Dr: Mary Kay Coleman MD Ordering Physician: Mary Kay Coleman MD Date of Service: 09/26/24 Procedure(s): MR head/brain wo con Accession Number(s): [id number] cc: Mary Kay Coleman MD; Debbie Carmona MD EXAMINATION: MR BRAIN WITHOUT CONTRAST CLINICAL INFORMATION: Syncope. Dizziness. Headache. COMPARISON: Correlated to CT dated August 15, 2024. TECHNIQUE: MRI of the brain was obtained using routine sequences without contrast. FINDINGS: No restricted diffusion. No acute intracranial hemorrhage, mass effect, midline shift, hydrocephalus or herniation. Munroe-white matter differentiation is normal. Posterior cranial fossa contents demonstrated no signal abnormality or mass effect. There is normal position of the cerebellar tonsils. Sellar/suprasellar region demonstrated no gross masses or signal abnormality. Flow-void signal within the main cerebral vessels is normal. There is a 5 mm hyperintense T2 restricted diffusion signal in the anterior superficial right parotid gland. There is hyperintense T2 restricted diffusion in the palatine tonsils. MR/MR head/brain wo con IMPRESSION: No acute or structural brain abnormality. Probable intraparenchymal lymph node, superficial right parotid gland. Small Moscow's tumor cannot be excluded. Probable inflammatory process in the palatine tonsils. Electronically signed by: Sunday Dorsey MD 09/26/2024 10:43 AM EDT RP Dictated By: Sunday Waller MD Signed By: <Electronically signed by Sunday Edmonds MD in OV> 09/26/24 1043 DD/ 1007 TD/TT: 09/26/24 1021 Blood Bank Laboratory Technician: Procedure Note Donotuseinterpreter, Image - 09/26/2024 [place] [address] Magnetic Resonance Report Signed Patient: Margot HartmanMR#: [id number] : 1990Acct:[id number] Age/Sex: 34 / FADM Date: 09/26/24 Loc: HO.MRI Attending Dr: Mary Kay Coleman MD Ordering Physician: Mary Kay Coleman MD Date of Service: 09/26/24 Procedure(s): MR head/brain wo con Accession Number(s): [id number] cc: Mary Kay Coleman MD; Debbie Carmona MD EXAMINATION: MR BRAIN WITHOUT CONTRAST CLINICAL INFORMATION: Syncope. Dizziness. Headache. COMPARISON: Correlated to CT dated August 15, 2024. TECHNIQUE: MRI of the brain was obtained using routine sequences without contrast. FINDINGS: No restricted diffusion. No acute intracranial hemorrhage, mass effect, midline shift, hydrocephalus or herniation. Munroe-white matter differentiation is normal. Posterior cranial fossa contents demonstrated no signal abnormality or mass effect. There is normal position of the cerebellar tonsils. Sellar/suprasellar region demonstrated no gross masses or signal abnormality. Flow-void signal within the main cerebral vessels is normal. There is a 5 mm hyperintense T2 restricted diffusion signal in the anterior superficial right parotid gland. There is hyperintense T2 restricted diffusion in the palatine tonsils. MR/MR head/brain wo con IMPRESSION: No acute or structural brain abnormality. Probable intraparenchymal lymph node, superficial right parotid gland. Small Taye's tumor cannot be excluded. Probable inflammatory process in the palatine tonsils. Electronically signed by: Sunday Dorsey MD 09/26/2024 10:43 AM EDT RP Dictated By: Sunday Waller MD Signed By: <Electronically signed by Sunday Edmonds MDin OV> 09/26/24 1043 DD/ 1007 TD/TT: 09/26/24 1021 Blood Bank Laboratory Technician: [employer] External Provider IMG MRI PROCEDURES Final Result documented in this encounter Visit Diagnoses Not on filedocumented in this encounter Additional Health Concerns Assessment Noted Time PHQ-9 Depression Total Score: 10 06/01/ 025 9:58 AM EDT documented as of this encounter Care Teams Economic Adviser Relationship Specialty Start Date End Date Debbie Carmona MD [address] [place] [address] PCP - General Internal Medicine 01/20/24 documented as of this encounter
== END 2024-09-26 10:01 | disposition home or self-care (01) ==
LOC: HO.MRI 10:00
PROVIDERS: PCP Internal Medicine; Visit Provider Psychiatry & Neurology Neurology
DX: R55 Syncope and collapse (principal)
CPT/HCPCS: 70551

== ENCOUNTER → 2024-09-26 10:00 | Outpatient (BNV) | payer OTHER, SELFPAY | PROVIDERS: PCP Internal Medicine; Visit Provider Radiology Diagnostic Radiology | DX: R55 Syncope and collapse (principal); R42 Dizziness and giddiness; R51.9 Headache, unspecified | CPT/HCPCS: 70551 ==

== ENCOUNTER → 2024-10-05 09:44 | Outpatient (REF) | payer OTHER, SELFPAY ==
--- NOTE | 2024-10-05 09:46 | CA_ITS ---
Transthoracic Echocardiogram Patient (Last, First, Middle): Margot Hartman, Gender: Female Date of : 1990 Age: 34 Procedure Date: 10/05/2024 Procedure Type: Transthoracic Echocardiogram Location: OP Height: 162.56 cm Weight: 58.06 kg BSA: 1.62 m2 Heart Rate: 76 bpm BP: 100 / 70 mmHg Ski Maker: JUSTA Referring MD: Ángel Argueta NP Mining Plant Operator: Nile Herman MD Symptoms: R55 - Syncope and collapse Study Quality: Adequate ECG Rhythm: Sinus Conclusions: - Essentially normal study Findings Left Ventricle Normal left ventricular size, thickness, and systolic function. The visually estimated ejection fraction is between 55-60%. Diastolic function is normal for age. Right Ventricle Normal right ventricular cavity size and systolic function. Atria Both atria are normal in size. There is no evidence of interatrial shunt. Aortic Valve Normal aortic valve structure and function. There is no aortic valve stenosis. There is no aortic valve regurgitation. Mitral Valve Normal mitral valve structure and function. There is trace mitral valve regurgitation. There is no mitral valve stenosis. Pulmonic Valve The pulmonic valve is likely normal. Tricuspid Valve Normal tricuspid valve structure. There is trace tricuspid valve regurgitation. The right ventricular systolic pressure is normal. The right ventricular systolic pressure is 17 mmHg. Normal right atrial pressure. There is no evidence of pulmonary hypertension. Great Vessels All visible segments of the aorta are normal in size. The pulmonary artery was not well visualized. Venous The inferior vena cava is normal in size and collapses greater than 50% with inspiration. Pericardium/Pleural There is no evidence of pericardial effusion. Prior Study Comparison No prior study available for comparison. Measurements 2D Linear Measurements IVSd: 0.54 0.6-0.9/0.6-1.0 cm LVIDd: 4.77 3.9-5.3/4.2-5.9 cm LVIDd Index: 2.94 2.4-3.2/2.2-3.1 cm/m2 LVIDs: 3.36 2.0-3.6 cm LVPWd: 0.60 0.7-1.1 cm Ao Root: 2.60 2.1-3.5 cm LA Diam: 2.80 2.7-3.8/3.0-4.0 cm LAIDs Index: 1.73 1.5-2.3 cm/m2 LV Mass: 101.81 67-162/88-224 g LV Mass Index: 62.85 43-95/49-115 g/m2 LVOT Diam: 2.10 3.0+(-)1.3 cm Mitral Valve MV Pk E: 0.61 MV PK A: 0.40 MV Decel Time: 110.00 E/A: 1.50 E'Lateral: 13.30 E'Medial: 11.50 E/E' Med: 5.30 E/E' Lat: 4.60 PHT: 32.00 MVA PHT: 6.88 Decel Forest: 5.57 Aortic Valve AoV Pk Jayy: 1.09 AoV Pk Grad: 5.00 LVOT LVOT Pk Jayy: 0.77 LVOT Mn Jayy: 0.52 LVOT VTI: 0.15 LVOT Pk Grad: 2.00 LVOT Mn Grad: 1.00 LVOT Diam: 2.10 LVOT Area: 3.46 Diastolic Function MV Pk E: 0.61 MV Pk A: 0.40 E/A: 1.50 E'Medial: 11.50 E/E' Med: 5.30 E' Laterial: 13.30 E/E' Lat: 4.60 Tricuspid Valve TR Pk Jayy: 1.84 TR Pk Grad: 14.00 RA Press: 3.00 RVSP: 17.00 Great Vessels Aorta Ao Root-2D: 2.60 2.0-3.7 cm Ao Asc: 2.40 2.1-3.4 cm Ao Arch: 2.30 Ao Desc: 1.50 Pulmonary Veins Pulm Vein S/D 0.90 Pulmonary Valve PV Pk Jayy: 0.77 Peak PV Grad: 2.00 Updated in Other Vendor System with Status of Final Nile Herman MD electronically signed on 10/05/2024 5:09:19 PM with status of Final
--- NOTE | 2024-10-05 09:46 | HM_ITS ---
* Total monitoring time 3 days. * Underlying rhythm is sinus with an average rate of 89/Min. * Rare supraventricular ectopy. * One isolated ventricular ectopic beat. * No significant pauses or high-grade AV blocks. * No patient markers or diary events. MTDD
--- OUTSIDE RECORDS SUMMARY | 2024-10-05 10:20 | XMS_ITS | Encounter Summary ---
Author Organization [employer] Address [address] [place] [address] [address] [place] [address] Care Team Providers Care Ditching Machine Operator Name Role Phone Debbie Carmona MD Primary Care Provide r Reason for Visit * Reason Onset Date Comments ER Follow-up 08/16/2024 Encounter Details Date Type Department Care Team ([facility] st Contact Info) Description 08/16/2024 Telephone [facility] MEDICINE [address] [place], [place] [phone] Debbie Carmona MD [address] [place] [address] ER Follow-up Social History Tobacco Use Types [...] 11:20 AM EDT Triage call with L [place] [id number] Pt didn't answer x2, left voice message to call [facility] triage line at [phone] * Telephone Encounter - Remi Conklin - [...] ED visit on : Date: 08/15/24 Hospital: [facility] Seen for: dizziness Symptomatic No TC from pt stating at [facility] advised pt to call and schedule apt with provider after being seen yesterday. Contact pt at [phone] (khmer) documented in this encounter Plan of Treatment Not on file documented as of this encounter Visit Diagnoses Not on filedocumented in this encounter Additional Health Concerns Assessment Noted Time PHQ-9 Depression Total Score: 10 06/01/ 025 9:58 AM EDT documented as of this encounter Care Teams Ditching Machine Operator Relationship Specialty Start Date End Date Debbie Carmona MD [address] [place] [id number] PCP - General Internal Medicine 01/20/24 documented as of this encounter
== END ==
LOC: HO.CARD 09:44
PROVIDERS: PCP Internal Medicine
DX: R55 Syncope and collapse (principal)
CPT/HCPCS: 93242; 93306

== ENCOUNTER → 2024-10-05 09:46 | Outpatient (BNV) | payer OTHER, SELFPAY | PROVIDERS: PCP Internal Medicine; Visit Provider Internal Medicine Cardiovascular Disease | DX: R55 Syncope and collapse (principal) | CPT/HCPCS: 93306 ==

== ENCOUNTER 2024-10-19 13:01 | Outpatient (REF) | payer OTHER, SELFPAY ==
--- NOTE | 2024-10-19 13:03 | EEG_ITS ---
This is a 16 channel EEG with an EKG lead. Patient is reported awake during the tracing. Background EEG rhythm is 10-12 hertz 5-20 microvolt posteriorly and lower amplitude fast anteriorly. Photic stimulation does not produce any significant driving. Hyperventilation is not performed. Cardiac lead does not reveal any significant abnormality. No sharp wave spikes or paroxysmal tendency noted. Impression: Unremarkable EEG. MTDD
--- OUTSIDE RECORDS SUMMARY | 2024-10-19 13:05 | XMS_ITS | Encounter Summary ---
Author Organization [employer] Address [address] [place] [address] 7 [place] [address] Care Team Providers Care Nitric Acid Plant Operator Name Role Phone Debbie Carmona MD Primary Care Provide r Reason for Visit * Reason Onset Date Comments ER Follow-up 08/16/2024 Encounter Details Date Type Department Care Team ([facility] st Contact Info) Description 08/16/2024 Telephone [facility] MEDICINE [address] [place], [place] [phone] Debbie Carmona MD [address] [place] [address] ER Follow-up Social History Tobacco Use Types [...] 11:20 AM EDT Triage call [place] [id number] Pt didn't answer x2, left voice message to call [facility] triage line at [phone] * Telephone Encounter - Remi Conklin - [...] ED visit on : Date: 08/15/24 [place] [facility]en for: dizziness Symptomatic No TC from pt stating at [facility] advised pt to call and schedule apt with provider after being seen yesterday. Contact pt at [phone] (portuguese) documented in this encounter Plan of Treatment Not on file documented as of this encounter Visit Diagnoses Not on filedocumented in this encounter Additional Health Concerns Assessment Noted Time PHQ-9 Depression Total Score: 10 06/01/ 025 9:58 AM EDT documented as of this encounter Care Teams Nitric Acid Plant Operator Relationship Specialty Start Date End Date Debbie Carmona MD [address] [place] [id number] PCP - General Internal Medicine 01/20/24 documented as of this encounter
== END 2024-10-19 13:02 | disposition home or self-care (01) ==
LOC: HO.NEURO 13:01
PROVIDERS: Visit Provider Psychiatry & Neurology Neurology
DX: R55 Syncope and collapse (principal)
CPT/HCPCS: 95816

== ENCOUNTER → 2024-10-19 13:03 | Outpatient (BNV) | payer OTHER, SELFPAY | PROVIDERS: Visit Provider Psychiatry & Neurology Neurology | DX: R55 Syncope and collapse (principal) | CPT/HCPCS: 95816 ==

== ENCOUNTER 2024-11-10 12:53 | Outpatient (AMB) | payer OTHER, SELFPAY ==
[2024-11-10 13:06] VITALS: BP 110/60; PULSE 89; BMI 21.2
--- NOTE | 2024-11-10 13:06 | A.OFFVIS_ITS ---
Vital Signs 11/10/24 13:06 Height 5 ft 4 in Weight 123 lb 7.342 oz BMI 21.2 BP 110/60 Blood Pressure Location Lt brachial Position Sitting Pulse 89 Pulse Source Pulse Oximeter Intake Visit Reasons: follow up/echo/holter Radial Drill Press Operator Required: Yes Radial Drill Press Operator Name: OLIVE [id number] Allergies No Known Allergies Allergy (Verified 09/11/24 10:49) HPI Comments Details: This is a 34-year-old female patient coming in for a follow-up visit. Patient with a history of syncopal episodes during the time when she is either about to start her menses or during menses. Patient [place] episodes have been less infrequent but more intense. Previously she was in the hospital for syncopal episode where she chipped her tooth and patient notes that she always has bowel and bladder incontinence with these episodes. Patient underwent a an echo and a Holter study for further evaluation. Patient states that she is also following with Neurology and recently had a MRI and an EEG. Today, patient reports feeling well overall without any recurrence of presyncope or syncopal episode. Patient is otherwise denying any exertional chest pain, shortness of breath, palpitations, dizziness, orthopnea, PND, leg edema, presyncope or syncope. Patient notes that she is hydrating herself much better now. [facility] History H/O section Family History Mother Diabetes Social History Alcohol intake: current Alcohol intake frequency: holidays/special occasions only Patient Tobacco Use Status: Never used Tobacco Review of Systems Const Denies weakness ENT Denies dizziness Card Denies chest pain, Denies chest pain with activity, Denies syncope, Denies rapid heart rate, Denies pedal edema, Denies edema, Denies leg edema, Denies lightheadedness, Denies palpitations, Denies dyspnea, Denies dyspnea on exertion and Denies orthopnea Resp Denies cough, Denies dyspnea and Denies dyspnea on exertion GI Denies hematochezia and Denies change in stool character Musc Denies abnormal gait, Denies muscle cramps, Denies muscle weakness, Denies numbness, Denies radiating pain into limb and Denies tingling Neuro Denies abnormal gait, Denies dizziness, Denies syncope, Denies numbness, Denies tingling and Denies weakness Endo Denies palpitations Physical Exam Vital Signs: Last Vital Signs Pulse 89 11/10/24 13:06 BP 110/60 11/10/24 13:06 BMI result Body Mass Index 21.2 Const General: cooperative, healthy appearing, comfortable and no acute distress Orientation/consciousness: patient oriented x3 HEENT Head: Yes normal to inspection Neck Neck: Yes normal visual inspection, Yes trachea midline and Yes supple Chest Chest palpation & inspection: normal inspection of the chest Resp Effort & Inspection: normal respiratory effort Auscultation: clear to auscultation bilaterally, no crackles, no rales, no rhonchi and no wheezes Cardio Jugular venous distension: no JVD Palpation: normal PMI Rate: regular rate Rhythm: regular rhythm Heart sounds: S1 normal heart sound present, S2 normal heart sound present, no click, no gallops, no murmurs and no rubs Peripheral pulses: Peripheral pulses 2+ throughout GI Inspection: Yes normal to inspection Palpation (GI): Soft to palpation Auscultation: normal bowel sounds Skin General skin exam: no rashes or lesions noted Neuro General: patient oriented x3 Extrem General: Yes normal to inspection, No no pedal edema and No calf tenderness Psych Appearance: grossly normal Mental Status: mental status grossly normal Speech and movement: Normal speech and movement present Assessment & Plan Assessment & Plan (1) Syncope and collapse: Code(s): R55 - Syncope and collapse Category: Medical Plan: 10/05/2024-Holter study showed a normal sinus rhythm at baseline with an average heart rate of 89 beats per minute, with rare supraventricular and ventricular ectopy. 10/05/2024-echo study showed a normal LV systolic function with an ejection fraction between 55-60%. Given above findings and resolution of her symptoms, no further cardiac testing indicated at this time. Patient is also following neurology where she had an EEG that was negative. Brain MRI showed possibility of enlarged lymph node, inflamed tonsils, and small Warthin's tumor. Patient to follow up with Neuro logy and PCP for this. Blood pressure today is improved and within normal limits. Advised to continue with adequate hydration of at least 2.5-3 L daily and specially during the times when she has her menses. Recommended adding extra salt to her diet. Advised regular exercise, heart healthy diet, and orthostatic precautions. Patient will follow up on an as-needed basis. In the interim, patient will call the office with any concerns or change in symptoms. This note was generated using voice recognition software. While every effort has been made to ensure accuracy and proper animal keeper head, there may be occasional errors that could affect the content or meaning of the described symptoms. Coding Level of Care Code Est Pt Level 3 (42221) Complex EM visit Add On G2211 Diagnoses Syncope and collapse R55 Time Spent (min) 29 Comment Time spent in reviewing the chart, test results, assessment, counseling and documentation.
--- OUTSIDE RECORDS SUMMARY | 2024-11-10 13:19 | XMS_ITS | Encounter Summary ---
Author Organization [employer] Address [address] [place] [address] Care Team Providers Care Woodworking Shop Laborer Name Role Phone Debbie Carmona MD Primary Care Provide r Encounter Details Date Type Department Care Team ([facility] st Contact Info) Description 07/12/2024 Orders Only [facility] [address] [place] [address] Radha Hobson Social History Tobacco Use Types [...] (08/15/2024 4:38 PM EDT) Color Urine Yellow [facility] Appearance Urine Clear [facility] PH 5.5 5.0 - 9.0 [facility] Glucose Urine UA Negative Negative mg/dL [facility] Urine Blood Large (3+)(A) Negative [facility] Specific Ola - Urine 1.020 1.005 - 1.025 [facility] Urine Protein Trace Neg-Trace mg/dL [facility] Urine Ketones Negative Negative mg/dL [facility] Nitrite Urine Negative Negative [facility] Leukocyte Esterase Urine Trace(A) Negative [facility] RBC Urine >20(A) 0 - 2 /HPF [facility] Urine WBC 6-10(A) 0 - 5 /HPF [facility] Urine Squamous Epithelial Cell 6-10 0 - 2 /HPF [facility] Urine Bacteria 2+ None Seen [facility] Hyaline Casts, Urine 0-2 0 - 2 /LPF [facility] 08/15/2024 4:38 PM EDT 08/15/2024 4:44 PM EDT Narrative [facility] - 08/15/2024 4:56 PM EDT [id number], Clean Catch us Generic External Data Provider LAB URINE ORDERAB LES Final Result [facility] [address] [place] [address] [phone] * HCG, Qualitative, Urine (08/15/2024 4:38 PM EDT) Urine NEGATIVE NEGATIVE [facility] Comment:This test was develo ped to detect early . Falsenegative results may occur after the 5th - 7th week ofpregnancy when using this test method. If clinicallyindicated, consider a serum hCG. 08/15/2024 4:38 PM EDT 08/15/2024 4:44 PM EDT us Generic External Data Provider LAB URINE ORDERAB LES Final Result [facility] [address] [place] [address] [phone] * HPV mRNA E6/E7 w/Reflex to HPV Genotypes 16, 18/45 (03/24/2024 12:00 AM EST) us Historical Provider LAB CYTOLOGY ORDERABLES F inal Result documented in this encounter Visit Diagnoses Not on filedocumented in this encounter Additional Health Concerns Assessment Noted Time PHQ-9 Depression Total Score: 10 025 9:58 AM EDT documented as of this encounter Care Teams Woodworking Shop Laborer Relationship Specialty Start Date End Date Debbie Carmona MD [address] [place] [id number] PCP - General Internal Medicine 01/20/24 documented as of this encounter
--- OUTSIDE RECORDS SUMMARY | 2024-11-10 13:19 | XMS_ITS | Clinical Summary ---
Author Organization [employer] Address [address] [place] [address] 7[address] [place] [address] Care Team Providers Care Sole Leather Cutting Machine Operator Name Role Phone Debbie Carmona MD Primary Care Provide r Allergies No known active allergies Medications * This document contains information received from the source organization and may not represent a complete record from that organization. ferrous sulfate (Fe Tabs) 325 (65 Fe) MG EC tabletIndication s:Iron deficiency anemia due to chronic blood loss Take 1 tablet (325 mg) by mouth with breakfast. Do not crush, chew, or split. 90 tablet 1 07/14/2024 5 Active amitriptyline (Elavil) 50 MG tabletIndication s:Migraine without aura and without status migrainosus, not intractable Take 1 tablet (50 mg) by mouth at bedtime. 30 tablet 2 07/14/2024 6 Active Active Problems Problem Noted Date Diagnosed Date Contusion of lip 09/08/2024 Vasovagal syncope 06/23/2024 Assessment & Plan (07/14/2024 11:50 AM EDT): I will mail to her again information of the yarn skeins examiner referral, she also has a follow-up appointment for this in September 01 Assessment & Plan (06/23/2024 3:17 PM EDT): Hx suggestive of vasovagal syncope. Will refer to cardiology for possible holter/tilt test Encouraged hydration and salt in diet Consider compression stocking Follow up in 6 weeks Avulsion of tooth 06/23/2024 Encounter for screening for cervical cancer 03/15 Depression with anxiety 01/20/2024 Assessment & Plan (05/15/2024 10:21 AM EST): Counseling done Patient referred to [facility] Assessment & Plan (01/20/2024 1:12 PM EST): Counseling done Health care maintenance 01/20/2024 Migraine without aura and wi thout status migrainosus, not intractable 01/20/2024 Assessment & Plan (07/14/2024 11:50 AM EDT): I advise to avoid migraine triggers like red wine, chocolate, cheese, strong perfumes I went up on her amitriptyline to 50 mg at bedtime continue with Aricept as needed Assessment & Plan (05/15/2024 10:22 AM EST): [...] and started her on Fioricet PRN Encounters Date Type Department Care Team Description 10/11/2024 Telephone [facility] MEDICINE [address] [place] [address] Debbie Carmona MD Appointment Request; Results 09/26/2024 Orders Only [facility] External Provider, [facility] 09/08/2024 3:00 PM EDT Office Visit [facility] ADULT DENTAL [address] [place] [address] Bernice Katz DDS History of dental trauma (Primary Dx) 08/16/2024 Telephone [facility] MEDICINE [address] [place], [place] [phone] Debbie Carmona MD ER Follow-up 08/15/2024 Orders Only [facility] External Provider, [facility] 08/11/2024 9:30 AM EDT Office Visit [facility] ADULT DENTAL [address] [place] [address] Bernice Katz, MINDY History of dental trauma (Primary Dx) from Last 3 Months Immunizations Immunization Administration Dates Next Due Influenza, seasonal, injectable, [...] Sign Reading Time Taken Comments Blood Pressure 110/68 09/08/2024 2:52 PM EDT Pulse 89 09/08/2024 2:52 PM EDT Temperature 36.7 C (98 F) 06/23/2024 2:36 PM EDT Respiratory Rate 18 06/23/2024 2:36 PM EDT Oxygen Saturation 97% 06/23/2024 2:36 PM EDT Inhaled Oxygen Concentration - - Weight 62.6 kg (138 lb) 06/23/2024 2:36 PM EDT Height 167.6 cm (5' 6 ) 06/23/2024 2:36 PM EDT Body Mass Index 22.27 06/23/2024 2:36 PM EDT Plan of Treatment Health Maintenance Due Date Last Done Comments Dental Oral Exam 1989 Dental Prophylaxis 1989 Dental X-Ray: Bitewings 1989 Dental X-Ray: Full Mouth 1989 Family Planning (PISQ) 2004 HPV Vaccines (1 - 3-dose series) 2004 DTaP/Tdap/Td Vaccines (1 - Tdap) 2008 Hepatitis B Vaccines (1 of 3 - 19+ 3-dose series) 2008 Influenza Vaccine (#1) 2024 01/20/2024 Depression Monitoring 12/02/2024 06/01/2024 , 06/01/2024 SDOH Screening 01/10/2025 01/11/2024 Alcohol/Substance Use Screening 01/19/2025 01/20/2024 Disability Screening 07/14/2025 07/14/2024 Tobacco Screening 09/08/2025 09/08/2024 Cervical Cancer Screening 03/24/2029 HPV/Cotest 03/24/2029 03/24/2024 Pap Smear 03/24/2029 03/24/2024 Zoster Vaccines (1 of 2) 2039 RSV Patients and Patients Aged 60 years or older (1 - 1-dose 75+ series) 2064 COVID-19 Vaccine Completed 01/20/2024 HIV Screening Completed 01/20/2024 Hepatitis C Screening Completed 01/20/2024 HIB Vaccines Aged Out No longer eligi ble based on patient's age to complete this topic Hepatitis A Vaccines Aged Out No long er eligible based on patient's age to complete this topic IPV Vaccines Aged Out No longer eligi ble based on patient's age to complete this topic Meningococcal B Vaccine Aged Out No l onger eligible based on patient's age to complete this topic Meningococcal Vaccine Aged Out No fiorella sravanthi eligible based on patient's age to complete this topic Pneumococcal Vaccine: Pediatrics (0 to 5 Years) and At-Risk Patients (6 to 49) Years Aged Out No longer eligible b ased [...] WO CONTRAST Routine 09/26/2024 10:07 AM EDT CASE PRESENTATION, DETAILED AND EXTENSIVE TREATMENT PLANNING Routine 09/08/2024 3:00 PM EDT History of dental trauma 8 MIDL RESIN-BASED COMPOSITE - 4 OR MORE SURFACES (ANTERIOR) Routine 09/08/2024 3:00 PM EDT History of dental trauma 9 MIDL RESIN-BASED COMPOSITE - 4 OR MORE SURFACES (ANTERIOR) Routine 09/08/2024 3:00 PM EDT History of dental trauma CULTURE, URINE, ROUTINE Routine 08/15/2024 8:[address] HEAD WO CONTRAST Routine 08/15/2024 7 :17 PM EDT URINALYSIS, COMPLETE, WITH REFLEX TO CULTURE Routine 08/15/2024 4:38 PM EDT HCG, QL, URINE Routine 08/15/2024 4:38 PM EDT CASE PRESENTATION, DETAILED AND EXTENSIVE TREATMENT PLANNING Routine 08/11/2024 9:30 AM EDT History of dental trauma INTRAORAL - PERIAPICAL FIRST RADIOGRAPHIC IMAGE Routine 08/11/2024 9:30 AM EDT History of dental trauma CONSULTATION - DIAGNOSTIC SERVICE PROVIDED BY DENTIST OR PHYSICIAN OTHER THAN REQUESTING DENTIST OR PHYSICIAN Routine 08/11/2024 9:30 AM EDT History of dental trauma HPV MRNA E6/E7 REFLEX TO HPV 16, 18/45 Routine 03/24/2024 12:00 AM EST PAP SMEAR Routine 03/24/2024 12:00 AM EST Encounter for screening for cervical cancer HEPATITIS C AB W/REFL TO HCV RNA, QN, PCR Routine 01/20/2024 11:50 AM EST Health care maintenance HIV 1/2 ANTIGEN/ANTIBODY, FOURTH GENERATION W/RFL Routine 01/20/2024 11:50 AM EST Health care maintenance from Last 3 Months or Most Recently Relevant to Health Maintenance Results * MR Brain w/o Contrast (09/26/2024 10:07 AM EDT) Anatomical Region Laterality Modality Brain Magnetic Resonan ce 09/26/2024 10:0 7 AM EDT Narrative 09/26/2024 10:45 AM EDT [place] [address] Magnetic Resonance Report Signed Patient: Margot Hartman MR#: [id number] : 1990 Acct:[id number] Age/Sex: 34 / F ADM Date: 09/26/24 Loc: HO.MRI Attending Dr: Mary Kay Coleman MD Ordering Physician: Mary Kay Coleman MD Date of Service: 09/26/24 Procedure(s): MR head/brain wo con Accession Number(s): [id number] cc: Mary Kay Coleman MD; Debbie Carmona [...] lymph node, superficial right parotid gland. Small [place]'s tumor cannot be excluded. Probable inflammatory process in the palatine tonsils. Electronically signed by: Sunday Dorsey MD 09/26/2024 10:43 AM EDT RP Dictated By: Sunday Waller MD Signed By: <Electronically signed by Sunday Edmonds MD in OV> 09/26/24 1043 DD/ 1007 TD/TT: 09/26/24 1021 Pathological Technician: Procedure Note Donotuseinterpreter, Image - 09/26/2024 [place] [address] Magnetic Resonance Report Signed Patient: Margot Hartman#: [id number] : 1990Acct:[id number] Age/Sex: 34 / FADM Date: 09/26/24 Loc: HO.MRI Attending Dr: Mary Kay Coleman MD Ordering Physician: Mary Kay Coleman MD Date of Service: 09/26/24 Procedure(s): MR head/brain wo con Accession Number(s): [id number] cc: Mary Kay Coleman MD; Debbie Carmona [...] lymph node, superficial right parotid gland. Small [place]'s tumor cannot be excluded. Probable inflammatory process in the palatine tonsils. Electronically signed by: Sunday Dorsey MD 09/26/2024 10:43 AM EDT RP Dictated By: Sunday Waller MD Signed By: <Electronically signed by Sunday Edmonds MDin OV> 09/26/24 1043 DD/ 1007 TD/TT: 09/26/24 1021 Pathological Technician: [facility] External Provider IMG MRI PROCEDURES Final Result * Culture, Urine, Routine (08/15/2024 8:05 PM EDT) Urine Urine specimen obtained by clean catch procedure / Unknown 08/15/2024 8:05 PM EDT 08/15/2024 8:05 PM EDT Comment:[facility] - 08/17/2024 10:21 AM EDT Urine Culture Report Result Urine Culture < 10,000 cfu/ml Specimen Source: Urine clean catch Generic External Data Provider LAB MICROBIOLOGY - GENERAL ORDERABLES Final Result [facility] [address] [place] [phone] * CT Head w/o Contrast (08/15/2024 7:17 PM EDT) Anatomical Region Laterality Modality Head, Neck Computed Tomogra phy 08/15/2024 7:17 PM EDT Narrative 08/15/2024 7:18 PM EDT [address] [address] [address] Scan Report Signed Patient: Margot Hartman MR#: [id number] : 1990 Acct:[id number] Age/Sex: 34 / F ADM Date: 08/15/24 Loc: HO.ED Attending Dr: Ordering Physician: Bowen Baeza MD Date of Service: 08/15/24 Procedure(s): CT head/brain wo IV con Accession Number(s): [id number] cc: Debbie Carmona MD; Bowen Baeza MD Report Number: [id number]: Total DLP = 658.00 mGy-cm CLINICAL HISTORY: possible seizure CT head without contrast Comparison: None Findings: No intra-axial mass, midline shift, hydrocephalus, or acute hemorrhage. No significant atrophy-like change or white matter disease. There is no sinus or mastoid fluid. The orbits are unremarkable. No skull fracture. IMPRESSION: 1. No acute intracranial findings. This document has been electronically signed by: Dajuan Doyle MD on 08/15/2024 19:17:42 Dictated By: Dajuan Doyle MD Signed By: <Electronically signed by Dajuan Doyle MD in OV> 08/15/241917 DD/ 16 TD/TT: 08/15/241916 Pathological Technician: Procedure Note Donotuseinterpreter, Image - 08/15/[address] [address] [address] Scan Report Signed Patient: Margot HartmanMR#: [id number] : 1990Acct:[id number] Age/Sex: 34 / FADM Date: 08/15/24 Loc: HO.ED Attending Dr: Ordering Physician: Bowen Baeza MD Date of Service: 08/15/24 Procedure(s): CT head/brain wo IV con Accession Number(s): [id number] cc: Debbie Carmona MD; Bowen Baeza MD Report Number: [id number]: Total DLP = 658.00 mGy-cm CLINICAL HISTORY: possible seizure CT head without contrast Comparison: None Findings: No intra-axial mass, midline shift, hydrocephalus, or acute hemorrhage. No significant atrophy-like change or white matter disease. There is no sinus or mastoid fluid. The orbits are unremarkable. No skull fracture. IMPRESSION: 1. No acute intracranial findings. This document has been electronically signed by: Dajuan Doyle MD on 08/15/2024 19:17:42 Dictated By: Dajuan Doyle MD Signed By: <Electronically signed by Dajuan Doyle MD in OV> 08/15/241917 DD/ 16 TD/TT: 08/15/241916 Pathological Technician: [facility] External Provider IMG CT PROCEDURES Final Result * (ABNORMAL) Urinalysis, Complete, with Reflex to Culture (08/15/2024 4:38 PM EDT) Color Urine Yellow [facility] Appearance Urine Clear [facility] PH 5.5 5.0 - 9.0 [facility] Glucose Urine UA Negative Negative mg/dL [facility] Urine Blood Large (3+)(A) Negative [facility] Specific [place] - Urine 1.020 1.005 - 1.025 [facility] Urine Protein Trace Neg-Trace mg/dL [facility] Urine Ketones Negative Negative mg/dL [facility] Nitrite Urine Negative Negative [facility] Leukocyte Esterase Urine Trace(A) Negative [facility] RBC Urine >20(A) 0 - 2 /HPF [facility] Urine WBC 6-10(A) 0 - 5 /HPF [facility] Urine Squamous Epithelial Cell 6-10 0 - 2 /HPF [facility] Urine Bacteria 2+ None Seen [facility] Hyaline Casts, Urine 0-2 0 - 2 /LPF [facility] 08/15/2024 4:38 PM EDT 08/15/2024 4:44 PM EDT Narrative [facility] - 08/15/2024 4:56 PM EDT [id number], Clean Catch Generic External Data Provider LAB URINE ORDERAB LES Final Result Performing Organization Address [facility] Co de Phone Number [facility] [address] [place] [phone] * HCG, Qualitative, Urine (08/15/2024 4:38 PM EDT) Urine NEGATIVE NEGATIVE [facility] Comment:This test was develo ped to detect early . Falsenegative results may occur after the 5th - 7th week ofpregnancy when using this test method. If clinicallyindicated, consider a serum hCG. 08/15/2024 4:38 PM EDT 08/15/2024 4:44 PM EDT Generic External Data Provider LAB URINE ORDERAB LES Final Result Performing Organization Address [facility] Co de Phone Number [facility] [address] [place] [phone] * HPV mRNA E6/E7 w/Reflex to HPV Genotypes 16, 18/45 (03/24/2024 12:00 AM EST) Historical Provider LAB CYTOLOGY ORDERABLES F inal Result * Pap Smear (03/24/2024 12:00 AM EST) Swab 03/24/2024 03/27/2024 9:2 0 AM EST Narrative [facility] - 03/31/2024 12:54 PM EST ----- ------- Name: Margot Hartman Age/Sex: 34/F : 1990 Unit#: [id number] Attend Dr: Debbie Carmona MD Re03/24/24 Status: [facility]: ----- ------- SPEC : [id number] RECD: 03/27/24 STATUS: ALYSA BUSTOS NUM: [id number] TARA: 03/24/24-[address]: Debbie Carmona MD ENTERED: 03/27/24 SP TYPE: Pap Smr OTHR DR: ORDERED: Pap Smear Interpretation Satisfactory for evaluation. Negative for intraepithelial lesion or malignancy. No endocervical cells seen. HPV High Risk: Negative HPV Genotyping 16: Negative HPV Genotyping 18: Negative Clinical Information LMP: 02/25/2024 Previous PAP test: Unknown date, normal as per patient Material Received ThinPrep-Cervical ----- ------- Signed (signature on file) VIC [place] (ASCP) 03/31/24 1254 ----- ------- END OF REPORT Debbie Campuzano MD LAB CYTOLOGY ORDERABL ES Final Result Performing Organization Address [facility]/ZIP Co de Phone Number [facility] [address] [place] [phone] * Hepatitis C Antibody with Reflex to HCV, RNA, Quantitative, Real-Time PCR (01/20/2024 11:50 AM EST) Hepatitis C Antibody Nonreactive Nonreactive [facility] Comment:Antibodies to HCV no t detected; does not exclude early acuteHCV infection. Blood Venous blood specimen / Unknown 01/20/2024 11:50 AM EST 01/20/2024 1:14 PM EST Debbie Campuzano MD LAB BLOOD ORDERABLES Final Result Performing Organization Address [facility] Co de Phone Number [facility] [address] [place] [phone] * HIV-1/2 Antigen and Antibodies, Fourth Generation, with Reflexes (01/20/2024 11:50 AM EST) HIV AB/AG Nonreactive Nonreactive [facility] Comment:HIV-1 p24 Ag and/or HIV-1/HIV-2 Ab not detected.A test result that is nonreactive does not exclude thepossibility of exposure to or infection with HIV-1 and/orHIV-2. Nonreactive results in this assay for individualswith prior exposure to HIV-1 and/or HIV-2 may be due toantigen and antibody levels that are below the limit ofdetection of this assay.[employer] HIV Ag/Ab Combo assay result andsupplemental assay results should be interpreted inconjunction with the patient's clinical presentation,history and other laboratory results. If the results areinconsistent with clinical evidence, additional testing issuggested to confirm the result. Blood Venous blood specimen / Unknown 01/20/2024 11:50 AM EST 01/20/2024 1:14 PM EST us Debbie Campuzano MD LAB BLOOD ORDERABLES Final Result [facility] [address] [place] [phone] from Last 3 Months or Most Recently Relevant to Health Maintenance [place] [address] [place] [address] LIMITED HSN FULL DENTAL-[facility] MEDICAID LIMITED ADULT DENTAL - HSN FULL (MEDICAID) Care Teams Sole Leather Cutting Machine Operator Relationship Specialty Start Date End Date Debbie Carmona MD [address] [place] [phone] PCP - General Internal Medicine 01/20/24
--- OUTSIDE RECORDS SUMMARY | 2024-11-10 13:19 | XMS_ITS | Encounter Summary ---
Author Organization [employer] Address [address] [place] [address] 7 [place] [address] Care Team Providers Care Contact Center Team Lead Name Role Phone Debbie Carmona MD Primary Care Provide r Reason for Visit * Reason Onset Date Comments ER Follow-up 08/16/2024 Encounter Details Date Type Department Care Team ([facility] st Contact Info) Description 08/16/2024 Telephone [facility] MEDICINE [address] [place], [place] [phone] Debbie Carmona MD [address] [place] [address] ER Follow-up Social History Tobacco Use Types [...] 11:20 AM EDT [place]riage [place] [address] Pt didn't answer x2, left voice message to call [facility] triage line at [phone] * Telephone Encounter - Remi Conklin - [...] ED visit on : Date: 08/15/24 Hospital: [facility] Seen for: dizziness Symptomatic No TC from pt stating at [facility] advised pt to call and schedule apt with provider after being seen yesterday. Contact pt at [phone] (icelandic) documented in this encounter Plan of Treatment Not on file documented as of this encounter Visit Diagnoses Not on filedocumented in this encounter Additional Health Concerns Assessment Noted Time PHQ-9 Depression Total Score: 10 06/01/ 025 9:58 AM EDT documented as of this encounter Care Teams Contact Center Team Lead Relationship Specialty Start Date End Date Debbie Carmona MD [address] [place] [phone] PCP - General Internal Medicine 01/20/24 documented as of this encounter
== END 2024-11-10 13:35 | disposition home or self-care (01) ==
LOC: HO.HCS 12:54
PROVIDERS: PCP Internal Medicine
DX: R55 Syncope and collapse (principal)
CPT/HCPCS: 99213

== ENCOUNTER → 2024-11-10 12:53 | Outpatient (BNVA) | payer OTHER, SELFPAY | PROVIDERS: PCP Internal Medicine | DX: R55 Syncope and collapse (principal) | CPT/HCPCS: 99212 ==

== ENCOUNTER 2025-02-13 14:14 | Outpatient (REF) | payer OTHER, SELFPAY ==
--- OUTSIDE RECORDS SUMMARY | 2025-02-13 11:00 | XMS_ITS | Encounter Summary ---
Author Organization [employer] Address [address] [place] [address] 7 [place] [address] Care Team Providers Care Roll Press Operator Name Role Phone Debbie Carmona MD Primary Care Provide r Encounter Details Date Type Department Care Team ([facility] st Contact Info) Description 02/13/2025 11:00 AM EST Office Visit [facility] MED[facility]INE [address] [place], [place] [phone] Barbara Singh FNP [address] [place] [address] Back pain, unspecified back location, unspecified back pain laterality, unspecified chronicity (Primary Dx); Vaginal discharge; Acute cystitis with hematuria Social History Tobacco Use Types Packs/Day Years [...] your housing situation today? I have carola emma 01/11/[address] you li [...] Sign Reading Time Taken Comments Blood Pressure 98/56 02/13/2025 10:54 AM EST Pulse 97 02/13/2025 10:54 AM EST Temperature 36.4 C (97.5 F) 02/13/2025 10:54 AM EST Respiratory Rate 22 02/13/2025 10:54 AM EST Oxygen Saturation 99% 02/13/2025 10:54 AM EST Inhaled Oxygen Concentration - - Weight 58.6 kg (129 lb 4 oz) 02/13/2025 10:54 AM EST Height 167.6 cm (5' 6 ) 02/13/2025 10:54 AM EST Body Mass Index 20.86 02/13/2025 10:54 AM EST documented in this encounter Plan of Treatment Scheduled Orders Name Type Priority Associated Diagnoses Orde r Schedule Chlamydia/N. Gonorrhoeae, PCR, Urine Lab Routine Vaginal discharge Ordered: 02/13/2025 Urine Culture Routine Microbiology Routine Back pain, unspecified back location, unspecified back pain laterality, unspecified chronicity Ordered: 02/13/2025 Urinalysis Complete Lab Routine Back pain, unspecified back location, unspecified back pain laterality, unspecified chronicity Expected: 02/13/2025, Expires: 02/13/2026 documented as of this encounter Procedures Procedure Name Priority Date/Time Associated Diagnosis Comments BACTERIAL VAGINOSIS PANEL Routine 02/13/2025 11:25 AM EST Vaginal discharge POCT , URINE Routine 02/13/2025 11:24 AM EST Back pain, unspecified back location, unspecified back pain laterality, unspecified chronicity documented in this encounter Results * (ABNORMAL) Bacterial Vaginosis Panel (02/13/2025 11:25 AM EST) TRICHOMONAS VAGINALIS DETECTION BY PCR NOT DETECTED Not Detect [facility] BACTERIAL VAGINOSIS DETECTION BY PCR POSITIVE(A) Negative [facility] Comment:The BV organism targ ets of the Xpert Xpress MVP test can becommensal in women; Xpert Xpress MVP positive results forbacterial vaginosis should be considered in conjunction withother clinical and patient information to determine thedisease status. Organisms that are not detected by the XpertXpress MVP test have also been reported to be associatedwith BV and aerobic vaginitis.The Xpert Xpress MVP test performance has not been evaluatedin patients under the age of 14. [employer] DETECTION BY PCR NOT DETECTED Not Detect [facility] Adelaida glab krusei PCR NOT DETECTED Not Detect [facility] Swab Vaginal structure / Unknown 02/13/2025 11:25 AM EST 02/13/2025 2:15 PM EST Barbara Singh [facility] LAB MICROBIOLOGY - GENERAL ORD ERABLES Final Result [facility] [address] [place] [phone] * POCT Urine (02/13/2025 11:24 AM EST) Preg Test, Ur Negative Negative, Indeterminate, None Detected, Trace, 3+, Specimen unsatisfactory for evaluation, Weakly Positive, 1+, 2+ QC Media Lot # [id number] Lot# Expiration Date [id number] Urine 02/13/2025 11:2 4 AM EST Barbara Singh ACCESS CONTROL SPECIALIST POINT OF CARE TEST ENTER/EDIT ORDERABLES Final Result documented in this encounter Visit Diagnoses Diagnosis Back pain, unspecified back location, unspecified back pain laterality, unspecified chronicity- Primary Vaginal discharge Leukorrhea, not specified as infective Acute cystitis with hematuria documented in this encounter Additional Health Concerns Assessment Noted Time PHQ-9 Depression Total Score: 10 025 9:58 AM EDT documented as of this encounter Care Teams Roll Press Operator Relationship Specialty Start Date End Date Debbie Carmona MD [address] [place] [address] PCP - General Internal Medicine 01/20/24 documented as of this encounter
[2025-02-13 15:57] LABS: Bacterial Vaginosis PCR POSITIVE (Negative); Candida Group PCR NOT DETECTED (Not Detect); Candida glab krusei PCR NOT DETECTED (Not Detect); Trichomonas vaginalis PCR NOT DETECTED (Not Detect)
--- OUTSIDE RECORDS SUMMARY | 2025-02-13 16:16 | XMS_ITS | Encounter Summary ---
Author Organization [employer] Address [address] [place] [address] 7 [place] [address] Care Team Providers Care Varnish Thinner Name Role Phone Debbie Carmona MD Primary Care Provide r Reason for Visit * Reason Onset Date Comments Insurance 02/13/2025 Encounter Details Date Type Department Care Team ([facility] Contact Info) Description 02/13/2025 Telephone [facility] [address] [place], [place] [phone] Debbie Carmona MD [address] [place] [phone] Insurance Social History Tobacco Use Types Packs/Day Years [...] encounter Miscellaneous Notes * Telephone Encounter - Tejal Goodman - 02/13/2025 10:31 AM EST Pt walked in to get seen in the [facility] but when I was checking her insurance [employer] the pcp they have assigned to it wasn't from our clinic so I let the patient know she would have to go to [place] for them to switch pcp. Patient said she will go upstairs and do that now. Patient then came back down and I ran her insurance and it still showed the same pcp. I informed patient it takesabout a day or two for it to switch so we wouldn't be able to see her today. Patient said she was in a lot of pain and really needed to be seen she then said she would sign the self pay form and oncethe pcp switched she would call her insurance. documented in this encounter Plan of Treatment Not on file documented as of this encounter Visit Diagnoses Not on filedocumented in this encounter Additional Health Concerns Assessment Noted Time PHQ-9 Depression Total Score: 10 025 9:58 AM EDT documented as of this encounter Care Teams Varnish Thinner Relationship Specialty Start Date End Date Debbie Carmona MD [address] [place] [phone] PCP - General Internal Medicine 01/20/24 documented as of this encounter
--- OUTSIDE RECORDS SUMMARY | 2025-02-13 16:16 | XMS_ITS | Encounter Summary ---
Author Organization [employer] Address [address] [place] [address] 7 [place] [address] Care Team Providers Care Sewing Machine Repairer Name Role Phone Debbie Carmona MD Primary Care Provide r Reason for Visit * Reason Onset Date Comments Medication Question [facility] stated they said she needs a PA contact pt with medication update Encounter Details Date Type Department Care Team ([facility] st Contact Info) Description 02/13/2025 Telephone [facility] MEDICINE [address] [place], [place] [phone] Debbie Carmona MD [address] [place] [phone] Medication Question (Pt went to pharmacy to get medications pt stated they said she needs a PA contact pt with medication update ) Social History Tobacco Use Types Packs/Day Years [...] encounter Miscellaneous Notes * Telephone Encounter - Judi Mcdowell RN - 02/13/2025 1:03 PM EST TC placed to [facility] pharmacy reagrding which medication requires a PA. Spoke with pharmacy staff who states the medications do not need a PA, but they are not covered under the pt's insurance plan. Pharmacy staff states it can be filled through loyalty plan so if pt is able to pay some money towards them today, that is okay. Pharmacy staff recommends they go to managed care regarding insurance. TC placed to pt via [employer] licensed retail supervisor ([employer] ID#[id number]) to inform of pharmacy message. No answer, LVM to call office back and ask to speak to the blue team nurses. * Telephone Encounter - iVcki Conklin - 02/13/2025 12:26 PM EST Pt went to pharmacy to get medications pt stated they said she needs a PA contact pt with medication update documented in this encounter Plan of Treatment Not on file documented as of this encounter Visit Diagnoses Not on filedocumented in this encounter Additional Health Concerns Assessment Noted Time PHQ-9 Depression Total Score: 10 025 9:58 AM EDT documented as of this encounter Care Teams Sewing Machine Repairer Relationship Specialty Start Date End Date Debbie Carmona MD [address] [place] [phone] PCP - General Internal Medicine 01/20/24 documented as of this encounter
--- OUTSIDE RECORDS SUMMARY | 2025-02-13 16:16 | XMS_ITS | Encounter Summary ---
Author Organization [employer] Address [address] [facility] [facility] [address] 7[address] [place] [address] Care Team Providers Care Cutter Finisher Name Role Phone Debbie Carmona MD Primary Care Provide r Encounter Details Date Type Department Care Team ([facility] st Contact Info) Description 07/12/2024 Orders Only [facility] MED & PEDS [address] [place] [address] Radha Hobson Social History Tobacco Use Types [...] (08/15/2024 4:38 PM EDT) Color Urine Yellow [facility] Appearance Urine Clear [facility] PH 5.5 5.0 - 9.0 [facility] Glucose Urine UA Negative Negative mg/dL [facility] Urine Blood Large (3+)(A) Negative [facility] Specific [place] - Urine 1.020 1.005 - 1.025 [facility] Urine Protein Trace Neg-Trace mg/dL [facility] Urine Ketones Negative Negative mg/dL [facility] Nitrite Urine Negative Negative [facility] Leukocyte Esterase Urine Trace(A) Negative [facility] RBC Urine >20(A) 0 - 2 /HPF [facility] Urine WBC 6-10(A) 0 - 5 /HPF [facility] Urine Squamous Epithelial Cell 6-10 0 - 2 /HPF [facility] Urine Bacteria 2+ None Seen [facility] Hyaline Casts, Urine 0-2 0 - 2 /LPF [facility] 08/15/2024 4:38 PM EDT 08/15/2024 4:44 PM EDT Narrative [facility] - 08/15/2024 4:56 PM EDT [id number], Clean Catch us Generic External Data Provider LAB URINE ORDERAB LES Final Result [facility] [address] [place] [phone] * HCG, Qualitative, Urine (08/15/2024 4:38 PM EDT) Urine NEGATIVE NEGATIVE [facility] Comment:This test was develo ped to detect early . Falsenegative results may occur after the 5th - 7th week ofpregnancy when using this test method. If clinicallyindicated, consider a serum hCG. 08/15/2024 4:38 PM EDT 08/15/2024 4:44 PM EDT us Generic External Data Provider LAB URINE ORDERAB LES Final Result [facility] [address] [place] [phone] [phone] * HPV mRNA E6/E7 w/Reflex to HPV Genotypes 16, 18/45 (03/24/2024 12:00 AM EST) us Historical Provider LAB CYTOLOGY ORDERABLES F inal Result documented in this encounter Visit Diagnoses Not on filedocumented in this encounter Additional Health Concerns Assessment Noted Time PHQ-9 Depression Total Score: 10 025 9:58 AM EDT documented as of this encounter Care Teams Cutter Finisher Relationship Specialty Start Date End Date Debbie Carmona MD [address] [place] [phone] PCP - General Internal Medicine 01/20/24 documented as of this encounter
--- OUTSIDE RECORDS SUMMARY | 2025-02-13 16:16 | XMS_ITS | Encounter Summary ---
Author Organization [employer] Address [address] [place] [address] 7t [place] [address] Care Team Providers Care Railway Track Worker Name Role Phone Debbie Carmona MD Primary Care Provide r Encounter Details Date Type Department Care Team (Latest Contact Info) Description 02/13/2025 Travel Social History Tobacco Use Types Packs/Day Years [...] documented as of this encounter Care Teams Railway Track Worker Relationship Specialty Start Date End Date Debbie Carmona MD [address] [place] [phone] PCP - General Internal Medicine 01/20/24 documented as of this encounter
--- OUTSIDE RECORDS SUMMARY | 2025-02-13 16:17 | XMS_ITS | Clinical Summary ---
Author Organization [employer] Address [address] [place] [address] 7t [place] [address] Care Team Providers Care Vacuum Applicator Operator Name Role Phone Debbie Carmona MD Primary Care Provide r Allergies No known active allergies Medications * This document contains information received from the source organization and may not represent a complete record from that organization. amitriptyline (Elavil) 50 MG tabletIndication s:Migraine without aura and without status migrainosus, not intractable Take 1 tablet (50 mg) by mouth at bedtime. 30 tablet 2 07/14/2024 07/15/19 26 Active naproxen (Naprosyn) 500 MG tabletIndication s:Back pain, unspecified back location, unspecified back pain laterality, unspecified chronicity Take 1 tab with food twice daily x 5 days then as needed 20 tablet 02/13/2025 1:24 PM EST 02/13/2025 Active acetaminophen (Tylenol Extra Strength) 500 MG tabletIndication s:Back pain, unspecified back location, unspecified back pain laterality, unspecified chronicity Take 2 tablets (1,000 mg) by mouth every 8 (eight) hours if needed for mild pain for up to 10 days. 30 tablet 02/13/2025 1:24 PM EST 02/13/2025 02/24/20 25 Active nitrofurantoin, macrocrystal-mon ohydrate, (Macrobid) 100 MG capsuleIndicatio ns:Acute cystitis with hematuria Take 1 capsule (100 mg) by mouth 2 times daily for 5 days. 10 capsule 02/13/2025 1:24 PM EST 02/13/2025 02/19/20 25 Active Active Problems Problem Noted Date Diagnosed Date Contusion of lip 09/08/2024 Vasovagal syncope 06/23/2024 Assessment & Plan (07/14/2024 11:50 AM EDT): I will mail to her again information of the customer service cashier referral, she also has a follow-up appointment [...] AM EST): Counseling done Patient referred to [facility] Assessment & Plan (01/20/2024 1:12 PM [...] Encounters Date Type Department Care Team Description 02/13/2025 11:00 AM EST Office Visit [facility] MEDICINE [address] [place] [phone] Barbara Singh, TRANSFORMER SHOP SUPERVISOR Back pain, unspecified back location, unspecified back pain laterality, unspecified chronicity (Primary Dx); Vaginal discharge; Acute cystitis with hematuria 02/13/2025 Telephone [facility] MEDICINE [address] [place] [address] Debbie Carmona MD Medication Question (Pt went to pharmacy to get medications pt stated they said she needs a PA contact pt with medication update ) 02/13/2025 Telephone [facility] MEDICINE [address] [place] [address] Debbie Carmona MD Insurance 02/13/2025 Travel from Last 3 Months Immunizations Immunization Administration [...] Mass Index 20.86 02/13/2025 10:54 AM EST Plan of Treatment Health Maintenance Due Date Last Done Comments Dental Oral Exam 1989 Dental Prophylaxis 1989 Dental X-Ray: Bitewings 1989 Dental X-Ray: Full Mouth 1989 Alcohol/Substance Use Screening 2001 Family Planning (PISQ) 2004 HPV Vaccines (1 - 3-dose series) 2004 DTaP/Tdap/Td Vaccines (1 - Tdap) 2008 Hepatitis B Vaccines (1 of 3 - 19+ 3-dose series) 2008 COVID-19 Vaccine (2 - 2024-2 6 season) 2024 01/20/2024 Influenza Vaccine (#1) 2024 01/20/2024 Depression Monitoring 12/02/2024 06/01/2024 , 06/01/2024 SDOH Screening 01/10/2025 01/11/2024 Disability Screening 07/14/2025 07/14/2024 Tobacco Screening 02/13/2026 02/13/2025 Cervical Cancer Screening 03/24/2029 HPV/Cotest 03/24/2029 03/24/2024 Pap Smear 03/24/2029 03/24/2024 Zoster Vaccines (1 of 2) 2039 RSV Patients and Patients Aged 60 years or older (1 - 1-dose 75+ series) 2064 HIV Screening Completed 01/20/2024 Hepatitis C Screening [...] location, unspecified back pain laterality, unspecified chronicity HPV MRNA E6/E7 REFLEX TO HPV 16, [...] Recently Relevant to Health Maintenance Results * (ABNORMAL) Bacterial Vaginosis Panel (02/13/2025 11:25 AM EST) TRICHOMONAS VAGINALIS DETECTION BY PCR NOT DETECTED Not Detect [facility] BACTERIAL VAGINOSIS DETECTION BY PCR POSITIVE(A) Negative [facility] Comment:The BV organism targ ets of [...] DETECTION BY PCR NOT DETECTED Not Detect [facility] Adelaida glab krusei PCR NOT DETECTED Not Detect [facility] Swab Vaginal structure / Unknown 02/13/2025 11:25 AM EST 02/13/2025 2:15 PM EST us Barbara Singh TRANSFORMER SHOP SUPERVISOR LAB MICROBIOLOGY - GENERAL ORD ERABLES Final Result [facility] [address] [place] [phone] * POCT Urine (02/13/2025 11:24 AM EST) Preg Test, Ur Negative Negative, Indeterminate, None Detected, Trace, 3+, Specimen unsatisfactory for evaluation, Weakly Positive, 1+, 2+ QC Media Lot # [id number] Lot# Expiration Date [id number] Urine 02/13/2025 11:2 4 AM EST Barbara Singh TRANSFORMER SHOP SUPERVISOR POINT OF CARE TEST ENTER/EDIT ORDERABLES Final Result * HPV mRNA E6/E7 w/Reflex to HPV Genotypes 16, 18/45 (03/24/2024 12:00 AM EST) Historical Provider LAB CYTOLOGY ORDERABLES F inal Result * Pap Smear (03/24/2024 12:00 AM EST) Swab 03/24/2024 03/27/2024 9:2 0 AM EST Narrative [facility] - 03/31/2024 12:54 PM EST ----- ------- Name: Margot Hartman Age/Sex: 34/F : 1990 Unit#: [id number] Attend Dr: Debbie Carmona MD Re03/24/24 Status: DEP REF Location: HO.HHCLNP Disch: ----- ------- SPEC : [id number] RECD: 03/27/24 STATUS: ALYSA BUSTOS NUM: [id number] TARA: 03/24/24-[address]: Debbie Carmona MD ENTERED: 03/27/24-0959 SP TYPE: Pap Smr OTHR DR: ORDERED: [...] MD LAB CYTOLOGY ORDERABL ES Final Result [facility] [address] [place] [phone] * Hepatitis C Antibody with Reflex to HCV, RNA, Quantitative, Real-Time PCR (01/20/2024 11:50 AM EST) Hepatitis C Antibody Nonreactive Nonreactive [facility] Comment:Antibodies to HCV no t detected; does not exclude early acuteHCV infection. Blood Venous blood specimen / Unknown 01/20/2024 11:50 AM EST 01/20/2024 1:14 PM EST us Debbie Campuzano MD LAB BLOOD ORDERABLES Final Result Performing Organization Address [facility] Co de Phone Number [facility] [address] [place] [phone] * HIV-1/2 Antigen and Antibodies, Fourth Generation, with Reflexes (01/20/2024 11:50 AM EST) HIV AB/AG Nonreactive Nonreactive [facility] Comment:HIV-1 p24 Ag and/or HIV-1/HIV-2 Ab not detected.A test result that is nonreactive does not exclude thepossibility of exposure to or infection with HIV-1 and/orHIV-2. Nonreactive results in this assay for individualswith prior exposure to HIV-1 and/or HIV-2 may be due toantigen and antibody levels that are below the limit ofdetection of this assay.The NextInput HIV Ag/Ab Combo assay result andsupplemental assay results should be interpreted inconjunction with the patient's clinical presentation,history and other laboratory results. If the results areinconsistent with clinical evidence, additional testing issuggested to confirm the result. Blood Venous blood specimen / Unknown 01/20/2024 11:50 AM EST 01/20/2024 1:14 PM EST us Debbie Campuzano MD LAB BLOOD ORDERABLES Final Result Performing Organization Address [facility] Co de Phone Number [facility] [address] [place] [phone] from Last 3 Months or Most Recently Relevant to Health Maintenance Insurance [facility] MEDICAID LIMITED ADULT DENTAL - HSN FULL (MEDICAID) Care Teams Vacuum Applicator Operator Relationship Specialty Start Date End Date Debbie Carmona MD [address] [place] [phone] PCP - General Internal Medicine 01/20/24
[2025-02-13 17:42] LABS: CT PCR Urine NOT DETECTED (Not Detect.); NG PCR Urine NOT DETECTED (Not Detect.)
== END 2025-02-13 14:15 | disposition home or self-care (01) ==
LOC: HO.HHCLNP 14:14
PROVIDERS: Visit Provider Nurse Practitioner Family
DX: Z20.2 Contact with and (suspected) exposure to infections with a predominantly sexual mode of transmission (principal); N89.8 Other specified noninflammatory disorders of vagina; M54.9 Dorsalgia, unspecified
CPT/HCPCS: 81515; 87086; 87088; 87186; 87491; 87591